=== PATIENT | male | born 1960 | race Caucasian/White ===

== ENCOUNTER 2016-07-05 11:15 | Emergency (ER) | payer OTHER ==
[~2016-07-05] VITALS: Ht 172.7 cm; Wt 108.5 kg
[~2016-07-05 11:15] MED LIST: ALPR-411 PO; ASPI-391 PO; ATOR-26 PO; BND25 PO; INSU1INJ15 SQ; INSUINJ14 SC; METO50TA16 PO; PANT40TA PO; SYN200 PO; TRAM-10 PO; ZOLP10TA PO
[2016-07-05 11:21] VITALS: TEMP 36.9; O2SAT 99; Ht 172.7 cm; Wt 108.5 kg
[2016-07-05] MEDS ORDERED: METHYLPREDNISOLONE 125 MG VIAL IV STA (11:31)
[2016-07-05] MEDS ORDERED: LEVALBUTEROL 1.25MG/0.5ML NEB INH STA (11:31)
[2016-07-05] MEDS ORDERED: DiphenhydrAMINE HCL 50 MG/ML VIAL IV STA (11:31)
[2016-07-05] MEDS ORDERED: IPRATROPIUM BROMIDE NEB SOLN 0.02% 2.5 ML VIAL INH STA (11:31)
[2016-07-05] MEDS ORDERED: PRLSR20 PO (11:44)
[2016-07-05] MEDS ORDERED: WARF4TAB8 PO (11:44)
[2016-07-05] MEDS ORDERED: LEVO100T7 PO (11:44)
[2016-07-05] MEDS ORDERED: METF-384 PO (11:44)
[2016-07-05] MEDS ORDERED: GLIP5TAB3 PO (11:44)
[2016-07-05] MEDS ORDERED: LIRA18IN SQ (11:44)
[2016-07-05] MEDS ORDERED: OPTIRAY 320 IV PRN (12:00)
[2016-07-05 12:13] LABS: BASO % 0.3 %; BASO ABS # 0.03 K/uL (0-0.2); EOS % 2.1 %; HEMATOCRIT 28.4 % (42-52); IG% 0.7 %; LYMPH % 22.6 %; LYMPH ABS # 2.52 K/uL (1.2-3.4); MEAN CELL VOLUME 66.5 fL (80-100); MEAN CORPUSCULAR HEMOGLOBIN 20.4 pg (25-34); MEAN CORPUSCULAR HGB CONC 30.6 g/dl (32-36); MEAN PLATELET VOLUME 9.6 fL (7.4-10.4); NEUT % 65.3 %; PLATELET COUNT 241 K/uL (130-400); RED BLOOD COUNT 4.27 M/uL (4.7-6.1); WHITE BLOOD COUNT 11.17 K/uL (4.8-10.8)
--- NOTE | 2016-07-05 12:30 | DIAGNOSTIC IMAGING REPORT ---
CHEST ONE VIEW PORTABLE CLINICAL HISTORY: EVALUATE RESPIRATORY DISTRESS. DYSPNEA COMPARISON STUDY: 12/04/2013 FINDINGS: Mild cardiomegaly. Interval median sternotomy. Diaphragms smooth. Lungs are clear. IMPRESSION: No acute process. Electronically signed by: Armando Huynh M.D. 07/05/2016 12:29 PM Dictated Date/Time: 07/05/2016 12:28 PM
[2016-07-05 12:35] LABS: ALT/SGPT 28 U/L (12-78); AST/SGOT 24 U/L (15-37); BLOOD UREA NITROGEN 10 mg/dl (7-18); BUN/CREATININE RATIO 6.7 (10-20); CALCIUM 8.2 mg/dl (8.5-10.1); CARBON DIOXIDE 25 mmol/L (21-32); CHLORIDE 108 mmol/L (98-107); GLUCOSE 201 mg/dl (70-99); POTASSIUM 4.4 mmol/L (3.5-5.1); SODIUM 141 mmol/L (136-145)
[2016-07-05 12:40] LABS: ALB/GLOB RATIO 0.9 (0.9-2); ALKALINE PHOSPHATASE 64 U/L (45-117)
[2016-07-05 12:57] LABS: COMPLETE YES; MICROCYTOSIS PRESENT; OVALOCYTES 1+
--- NOTE | 2016-07-05 13:36 | DIAGNOSTIC IMAGING REPORT ---
CHEST CTA for PULMONARY ARTERIES CT DOSE: 597.80 mGy.cm HISTORY: Chest pain dyspnea TECHNIQUE: Multiaxial CT images of the chest were performed following the intravenous administration of contrast to evaluate the pulmonary arteries. Maximal intensity projection images were also obtained. COMPARISON STUDY: None. FINDINGS: There is a normal caliber thoracic aorta with no evidence for dissection. There is no evidence for pulmonary embolus. No pleural effusions. No pneumothorax. The liver and spleen are unremarkable. No mediastinal or hilar lymphadenopathy. The central airways are patent. The lungs are clear. IMPRESSION: No evidence for pulmonary embolus. Electronically signed by: Armando Huynh M.D. 07/05/2016 1:35 PM Dictated Date/Time: 07/05/2016 1:27 PM
[2016-07-05 14:30] VITALS: BP 137/85; PULSE 94
[2016-07-05] MEDS ORDERED: DOXYCYCLINE HYCLATE 100 MG CAP PO ONE (14:30)
[2016-07-05] MEDS ORDERED: DOXY100C PO (14:30)
[2016-07-05] MEDS ORDERED: SODIUM CHLORIDE 0.9% 500ML 500 ML IV STA (14:33)
--- NOTE | 2016-07-05 16:23 | EMERGENCY ROOM VISIT NOTE ---
History Report prepared by Jorgito: Yuliana Benavides Under the Supervision of: Dr. Balbir Newman M.D. First contact with patient: 11:29 Chief Complaint: COUGH Stated Complaint: COUGHING History of Present Illness The patient is a 55 year old male who presents to the Emergency Room with complaints of a persistent cough for the last couple months. He initially attributed it to living in a dry and ashlyn basement, but decided to present to the ED after experiencing 2 "massive coughing fits" in the past 1.5 weeks. During the last couple of months, he also got sick with a chest cold, at which time his cough became slightly productive, but reports that it has been mostly dry since his cold resolved. Last week, he visited the doctor and received an antibiotic and prednisone. He stopped taking the prednisone after his blood sugar became too elevated. He finished the course of antibiotics, which helped his cough briefly, but his cough persists. He has tried many OTC medications including Robitussin, Mucinex, and Vicks for cough, but has not experienced any relief. He uses his inhaler 3 times every 4 hours, which relieves his cough briefly. He had a slight fever weeks ago, but not currently. He denies any shortness of breath. He denies any recent history of COPD, emphysema, or asthma. He has been using a humidifier at home. Source of History: patient Onset: couple month ago Position: other (global) Quality: other (cough) Timing: other (persistent) Modifying Factors (Relieving): other (inhaler (briefly), antibotics (briefly )) Associated Symptoms: No SOB, No fevers Note: Modifying factors: No significant relief with Robitussin, Mucinex, Vicks. Review of Systems See HPI for pertinent positives & negatives. A total of 10 systems reviewed and were otherwise negative. Past Medical & Surgical Medical Problems: (1) Allergic reaction (2) Anxiety (3) Anxiety (4) Coronary artery disease (5) DENTAL SURGERY (6) Depression (7) Diabetes (8) Heart disease (9) Hyperthyroidism (10) THYROID CA ABLATION (11) TOOTH ROOT REMOVAL (12) Wide-complex tachycardia Surgical Problems: (1) History of kidney surgery (2) S/P CABG x 4 Family History Diabetes mellitus Heart disease Social History Smoking Status: Never Smoker Alcohol Use: occasionally Drug Use: marijuana, other Marital Status: single Occupation Status: unemployed Current/Historical Medications Scheduled Aspirin (Aspirin Ec), 162 MG PO QAM Atorvastatin (Lipitor), 80 MG PO QAM Doxycycline Hyclate (Vibramycin), 100 MG PO BID Glipizide (Glucotrol), 5 MG PO DAILY Levothyroxine Sodium (Levothyroxine Sodium), 100 MCG PO DAILY Liraglutide (Victoza), 0.6 ML SQ DAILY Metformin Hcl (Glucophage), 1,000 MG PO BID Metoprolol Tartrate (Lopressor) (Lopressor), 25 MG PO BID Omeprazole (Prilosec), 20 MG PO DAILY Warfarin Sod (Jantoven), 8 MG PO DAILY Allergies Coded Allergies: Penicillins (Verified Allergy, Intermediate, RASH, 07/05/16) Clarithromycin (Unverified Allergy, Mild, ALLERGY, 07/05/16) Erythromycin (Unverified Allergy, Mild, ALLERGY, 07/05/16) Iodinated Diagnostic Agents (Verified Allergy, Unknown, HIVES, 07/05/16) Physical Exam Vital Signs Date Time Temp Pulse Resp B/P Pulse Ox O2 Delivery O2 Flow Rate FiO2 07/05/16 14:30 94 18 137/85 07/05/16 13:47 104 125/74 07/05/16 12:46 97 07/05/16 11:21 36.9 118 18 98/58 99 Room Air Physical Exam GENERAL: Patient is in no acute distress. HEENT: No acute trauma, normocephalic atraumatic, mucous membranes moist, no nasal congestion, no scleral icterus. NECK: No stridor, no adenopathy, no meningismus, trachea is midline. LUNGS: Breath sounds are full and equal bilaterally. Scattered wheezes are heard. No rhonchi. Dry cough noted. HEART: Tachycardic with a regular rhythm. No murmurs. ABDOMEN: Soft, nontender, bowel sounds positive, no hernias, no peritonitis. RECTAL: Stool is brown and heme negative. EXTREMITIES: No cyanosis or edema, full range of motion of all the joints without pain or difficulty, no signs for acute trauma. NEUROLOGIC: Oriented x 3, no acute motor or sensory deficits, no focal weakness. SKIN: No rash, no jaundice, no diaphoresis. Medical Decision & Procedures ER Provider Diagnostic Interpretation: X ray results and stated below per my interpretation and radiologist interpretation. Other radiology results and stated below per my review and radiologist interpretation: CHEST ONE VIEW PORTABLE CLINICAL HISTORY: EVALUATE RESPIRATORY DISTRESS. DYSPNEA COMPARISON STUDY: 12/04/2013 FINDINGS: Mild cardiomegaly. Interval median sternotomy. Diaphragms smooth. Lungs are clear. IMPRESSION: No acute process. Electronically signed by: Armando Huynh M.D. 07/05/2016 12:29 PM Dictated Date/Time: 07/05/2016 12:28 PM CHEST CTA for PULMONARY ARTERIES CT DOSE: 597.80 mGy.cm HISTORY: Chest pain dyspnea TECHNIQUE: Multiaxial CT images of the chest were performed following the intravenous administration of contrast to evaluate the pulmonary arteries. Maximal intensity projection images were also obtained. COMPARISON STUDY: None. FINDINGS: There is a normal caliber thoracic aorta with no evidence for dissection. There is no evidence for pulmonary embolus. No pleural effusions. No pneumothorax. The liver and spleen are unremarkable. No mediastinal or hilar lymphadenopathy. The central airways are patent. The lungs are clear. IMPRESSION: No evidence for pulmonary embolus. Electronically signed by: Armando Huynh M.D. 07/05/2016 1:35 PM Dictated Date/Time: 07/05/2016 1:27 PM Laboratory Results 07/05/16 11:55 Red Blood Count 4.27, Mean Corpuscular Volume 66.5, Mean Corpuscular Hemoglobin 20.4, Mean Corpuscular Hemoglobin Concent 30.6, Mean Platelet Volume 9.6, Neutrophils (%) (Auto) 65.3, Lymphocytes (%) (Auto) 22.6, Monocytes (%) (Auto) 9.0, Eosinophils (%) (Auto) 2.1, Basophils (%) (Auto) 0.3, Neutrophils # (Auto) 7.30, Lymphocytes # (Auto) 2.52, Monocytes # (Auto) 1.00, Eosinophils # (Auto) 0.24, Basophils # (Auto) 0.03 07/05/16 11:55 Test 07/05/16 11:55 White Blood Count 11.17 K/uL (4.8-10.8) Red Blood Count 4.27 M/uL (4.7-6.1) Hemoglobin 8.7 g/dL (14.0-18.0) Hematocrit 28.4 % (42-52) Mean Corpuscular Volume 66.5 fL (80-100) Mean Corpuscular Hemoglobin 20.4 pg (25-34) Mean Corpuscular Hemoglobin Concent 30.6 g/dl (32-36) Platelet Count 241 K/uL (130-400) Mean Platelet Volume 9.6 fL (7.4-10.4) Neutrophils (%) (Auto) 65.3 % Lymphocytes (%) (Auto) 22.6 % Monocytes (%) (Auto) 9.0 % Eosinophils (%) (Auto) 2.1 % Basophils (%) (Auto) 0.3 % Neutrophils # (Auto) 7.30 K/uL (1.4-6.5) Lymphocytes # (Auto) 2.52 K/uL (1.2-3.4) Monocytes # (Auto) 1.00 K/uL (0.11-0.59) Eosinophils # (Auto) 0.24 K/uL (0-0.5) Basophils # (Auto) 0.03 K/uL (0-0.2) RDW Standard Deviation 46.1 fL (36.4-46.3) RDW Coefficient of Variation 19.4 % (11.5-14.5) Immature Granulocyte % (Auto) 0.7 % Immature Granulocyte # (Auto) 0.08 K/uL (0.00-0.02) Microcytosis PRESENT Ovalocytes 1+ Anion Gap 8.0 mmol/L (3-11) Est Creatinine Clear Calc Drug Dose 65.7 ml/min Estimated GFR () 59.5 Estimated GFR (Non- 51.3 BUN/Creatinine Ratio 6.7 (10-20) Calcium Level 8.2 mg/dl (8.5-10.1) Total Bilirubin 0.4 mg/dl (0.2-1) Aspartate Amino Transf (AST/SGOT) 24 U/L (15-37) Alanine Aminotransferase (ALT/SGPT) 28 U/L (12-78) Alkaline Phosphatase 64 U/L (45-117) Troponin I < 0.015 ng/ml (0-0.045) Total Protein 7.0 gm/dl (6.4-8.2) Albumin 3.4 gm/dl (3.4-5.0) Globulin 3.6 gm/dl (2.5-4.0) Albumin/Globulin Ratio 0.9 (0.9-2) Laboratory results reviewed by me. Medications Administered Medications (Trade) Dose Ordered Sig/Shari Route Start Time Stop Time Status Last Admin Dose Admin Methylprednisolone Sodium Succinate (Solu-Medrol IV) 80 mg NOW STAT IV 07/05/16 11:31 07/05/16 11:39 DC 07/05/16 12:03 80 MG Diphenhydramine HCl (Benadryl Inj) 50 mg NOW STAT IV 07/05/16 11:31 07/05/16 11:39 DC 07/05/16 12:02 50 MG Levalbuterol (Xopenex 1.25MG/ 0.5ML Neb) 1.25 mg NOW STAT INH 07/05/16 11:31 07/05/16 11:39 DC 07/05/16 12:03 1.25 MG Ipratropium Durant (Atrovent 0.02% 0.5MG/2.5ML Neb) 0.5 mg NOW STAT INH 07/05/16 11:31 07/05/16 11:39 DC 07/05/16 12:24 0.5 MG Doxycycline Hyclate (Vibramycin Cap) 100 mg ONE ONCE PO 07/05/16 14:30 07/05/16 14:31 DC 07/05/16 14:37 100 MG ECG Indication: other (cough) Rate (beats per minute): 105 Rhythm: sinus tachycardia Findings: T-wave inversion (Lateral), no ectopy Comparison ECG Date: 02 Apr 2014 Change: no significant change ED Course 1130: The patient was evaluated in room C9. A complete history and physical exam was performed. 1131: Ipratropium Durant 0.5 mg INH, Levalbuterol 1.25 mg INH, Diphenhydramine HCl 50 mg IV, Solu-Medrol IV 80 mg IV. 1416: I reevaluated the patient. He is resting comfortably. I updated the patient on the results and treatment plan. He expressed understanding and agreement. He will be discharged home. 1430: Doxycycline Hyclate 100 mg PO. Medical Decision Differential diagnoses: bronchitis, pneumonia, CHF, PE, cardiac ischemia, electrolyte imbalance. There is a mild leukocytosis, this could be consistent with infection or just the stress of the situation. The patient was anemic with a hemoglobin of 8.7. He tells me he has a history of anemia but does not know his typical hemoglobin value. I did perform a rectal exam, the stool was heme negative. There is no significant electrolyte abnormality or kidney failure. EKG shows a sinus tachycardia, no acute ischemia. Cardiac enzyme testing times one is not consistent with acute cardiac injury. Chest x-ray does not show pneumonia, pneumothorax or CHF. Chest CT shows no PE, no pneumonia. Blood cultures are pending. The patient presents with a persistent cough for months. He was given a Xopenex Atrovent neb, he received IV Benadryl and IV Solu-Medrol in preparation for the CT scan-he did not have any type of reaction from the CT dye. The patient was given a dose of oral doxycycline. The patient is stable for discharge. Since he has had symptoms for as long as a few months, I am going to place him on doxycycline. He will continue his albuterol. No further steroids to be prescribed. I did suggest he follow with his doctors office and stay very well-hydrated. He can return here for worsening symptoms or lack of improvement. For now, he is being treated for an acute bronchitis. Impression Primary Impression: Acute bronchitis Additional Impressions: Cough Anemia Scribe Attestation The scribe's documentation has been prepared under my direction and personally reviewed by me in its entirety. I confirm that the note above accurately reflects all work, treatment, procedures, and medical decision making performed by me. Departure Information Dispostion Home / Self-Care Prescriptions Doxycycline Hyclate (VIBRAMYCIN) 100 Mg Cap 100 MG PO BID for 10 Days, #20 CAP Prov: Balbir Newman M.D. 07/05/16 Referrals [place] D.O. (PCP) Forms HOME CARE DOCUMENTATION FORM, IMPORTANT VISIT INFORMATION Patient Instructions [facility] Additional Instructions doxycycline 2x per day for 10 days continue the inhaler rest stay well hydrated see miya keller this week for a recheck return if worsening keep a watch on your coumadin level on the antibiotics we noted you were anemic today, no pneumonia seen on CT scan Problem Qualifiers
[2016-07-07] MEDS ORDERED: ASPI81TA28 PO (01:21)
[2016-10-18] MEDS ORDERED: FRRS300 PO (16:37)
[2016-10-18] MEDS ORDERED: LSN25 PO (16:37)
[2016-10-18] MEDS ORDERED: PANT1TAB48 PO (16:37)
== END 2016-07-05 14:52 | disposition home or self-care (01) ==
LOC: C.EDB 11:16 → C.EDC 14:52
DX: J20.9 Acute bronchitis, unspecified (principal); R05 Cough; D64.9 Anemia, unspecified; F41.9 Anxiety disorder, unspecified; I25.10 Atherosclerotic heart disease of native coronary artery without angina pectoris; F32.9 Major depressive disorder, single episode, unspecified; E11.9 Type 2 diabetes mellitus without complications; E05.90 Thyrotoxicosis, unspecified without thyrotoxic crisis or storm; Z85.850 Personal history of malignant neoplasm of thyroid; Z95.1 Presence of aortocoronary bypass graft; Z83.3 Family history of diabetes mellitus; Z82.49 Family history of ischemic heart disease and other diseases of the circulatory system; Z79.82 Long term (current) use of aspirin; Z79.01 Long term (current) use of anticoagulants; Z79.899 Other long term (current) drug therapy

== ENCOUNTER 2016-07-07 19:01 | Emergency (ER) | payer OTHER ==
[~2016-07-07] VITALS: Ht 172.7 cm; Wt 107.9 kg
[~2016-07-07 19:01] MED LIST changes: -ALPR-411 PO; -ASPI-391 PO; +ASPI81TA28 PO; -BND25 PO; +DOXY100C PO; +GLIP5TAB3 PO; -INSU1INJ15 SQ; -INSUINJ14 SC; +LEVO100T7 PO; +LIRA18IN SQ; +METF-384 PO; -PANT40TA PO; +PRLSR20 PO; -SYN200 PO; -TRAM-10 PO; +WARF4TAB8 PO; -ZOLP10TA PO
[2016-07-07 19:09] VITALS: TEMP 36.8; Ht 172.7 cm; Wt 107.9 kg
[2016-07-07 20:07] VITALS: O2SAT 95
[2016-07-07] MEDS ORDERED: SODIUM CHLORIDE 0.9% 1000ML 1,000 ML IV STA (20:22)
--- NOTE | 2016-07-07 20:44 | DIAGNOSTIC IMAGING REPORT ---
CHEST ONE VIEW PORTABLE HISTORY: Lightheadedness COMPARISON: Chest 07/05/2016. FINDINGS: The heart remains mildly enlarged. There are poststernotomy changes. No pleural effusions. No pneumothorax. The lungs are clear. No evidence for pulmonary edema. Stable mediastinal prominence is likely due to the mediastinal fat. IMPRESSION: No significant change compared to the prior study. No acute process. Electronically signed by: Segun Vincent M.D. 07/07/2016 8:43 PM Dictated Date/Time: 07/07/2016 8:41 PM
[2016-07-07 21:07] LABS: BASO % 0.1 %; BASO ABS # 0.01 K/uL (0-0.2); EOS % 2.1 %; IG% 0.5 %; LYMPH ABS # 2.31 K/uL (1.2-3.4); MEAN CELL VOLUME 68.2 fL (80-100); MEAN CORPUSCULAR HEMOGLOBIN 20.5 pg (25-34); MEAN PLATELET VOLUME 9.5 fL (7.4-10.4); MONO % 6.9 %; NEUT % 63.4 %; PLATELET COUNT 244 K/uL (130-400); WHITE BLOOD COUNT 8.55 K/uL (4.8-10.8)
[2016-07-07 21:24] LABS: POINT OF CARE TROPONIN I 0.01 ng/ml (0-0.045)
[2016-07-07 21:26] LABS: CREATININE 1.2 mg/dl (0.60-1.40)
[2016-07-07 21:27] LABS: CALCIUM 8.5 mg/dl (8.5-10.1); MAGNESIUM 1.6 mg/dl (1.8-2.4)
[2016-07-07 21:30] LABS: ALB/GLOB RATIO 0.9 (0.9-2)
[2016-07-07 21:31] LABS: COMPLETE YES; HYPOCHROMIA PRESENT; MICROCYTOSIS PRESENT; OVALOCYTES 1+
[2016-07-07 22:05] LABS: URINE APPEARANCE CLEAR (CLEAR); URINE BILIRUBIN NEG (NEG); URINE COLOR YELLOW; URINE NITRITE NEG (NEG); URINE SPECIFIC GRAVITY 1.021 (1.000-1.030); UROBILINOGEN NEG (NEG); ZZUR CULT IF INDIC CLEAN CATCH NO
[2016-07-07 22:09] LABS: MANUAL MICROSCOPIC REQUIRED? NO; REVIEW REQ? NO
--- NOTE | 2016-07-07 22:47 | EMERGENCY ROOM VISIT NOTE ---
History First contact with patient: 20:02 Chief Complaint: IRREGULAR HEARTBEAT Stated Complaint: LIGHT HEADED, HEARTBEART IS UNUSUAL NAUSEA Nursing Triage Summary: Pt reports approx 1.5 hours ago he "had a feeling of impending doom, I was short of breath, I just didn't feel well." Now presents to ER. Pt report shortness of breath with exertion, productive cough. History of Present Illness The patient is a 55 year old male who presents to the Emergency Room via private vehicle coming by parents with complaints of "lightheaded, heartbeat is unusual, nausea". The patient states that he was here a few days ago and was treated for acute bronchitis. He was given doxycycline. He states that he has been taking the doxycycline however he has been taking a few extra tablets. He notes that he is taking about 1 extra tablet per day. He also states that he may have taken the largest dose of victoza yesterday. He states this was prescribed to him by the dietitian, and he was never given instructions upon dosage. He states that he is here today because 1.5 hours prior to arrival he began feeling lightheaded, nauseous and a "feeling of impending doom". He states that he slept 90% of the day. He has been coughing, feeling sick and his body hurts. He notes that he has been coughing up dark sputum, sometimes clear and brown in nature. He denies any hematemesis. He states that he does have shortness of breath with exertion. He states that yesterday he felt like his blood sugar was low. He notes that he has not eaten anything today since 4 AM. He also states that he has not taken the metformin for the past few days, and did take just before coming here to the emergency department. He denies any speech troubles, weakness in the arms or legs, urinary symptoms, troubles with bowel movements, chest pain, abdominal pain. He states that he has felt like this before, and believes that it was secondary to panicking. Review of Systems A complete 10-point Review of Systems was discussed with the patient, with pertinent positives and negatives listed in the History of Present Illness. All remaining Review of Systems questions can be considered negative unless otherwise specified. Past Medical/Surgical History Medical Problems: (1) Allergic reaction (2) Anxiety (3) Anxiety (4) Coronary artery disease (5) DENTAL SURGERY (6) Depression (7) Diabetes (8) Heart disease (9) Hyperthyroidism (10) THYROID CA ABLATION (11) TOOTH ROOT REMOVAL (12) Wide-complex tachycardia Surgical Problems: (1) History of kidney surgery (2) S/P CABG x 4 Family History Diabetes mellitus Heart disease Social History Smoking Status: Former Smoker Alcohol Use: occasionally Drug Use: marijuana, other Marital Status: single Occupation Status: unemployed Current/Historical Medications Scheduled Aspirin (Aspirin Ec), 81 MG PO QAM Atorvastatin (Lipitor), 80 MG PO QAM Doxycycline Hyclate (Vibramycin), 100 MG PO BID Glipizide (Glucotrol), 5 MG PO DAILY Levothyroxine Sodium (Levothyroxine Sodium), 100 MCG PO DAILY Liraglutide (Victoza), 0.6 ML SQ DAILY Metformin Hcl (Glucophage), 1,000 MG PO BID Metoprolol Tartrate (Lopressor) (Lopressor), 25 MG PO BID Omeprazole (Prilosec), 20 MG PO DAILY Warfarin Sod (Jantoven), 8 MG PO DAILY Allergies Coded Allergies: Penicillins (Verified Allergy, Intermediate, RASH, 07/05/16) Clarithromycin (Unverified Allergy, Mild, ALLERGY, 07/05/16) Erythromycin (Unverified Allergy, Mild, ALLERGY, 07/05/16) Iodinated Diagnostic Agents (Verified Allergy, Unknown, HIVES, 07/05/16) Physical Exam Vital Signs Date Time Temp Pulse Resp B/P Pulse Ox O2 Delivery O2 Flow Rate FiO2 07/07/16 22:54 78 16 141/92 98 Room Air 07/07/16 22:00 82 16 140/91 97 Room Air 07/07/16 21:12 73 07/07/16 21:04 138/80 126/86 129/86 07/07/16 21:00 80 16 130/89 98 Room Air 07/07/16 20:27 87 07/07/16 20:07 95 Room Air 07/07/16 20:07 95 Room Air 07/07/16 20:05 87 18 160/97 96 Room Air 07/07/16 19:09 36.8 89 18 136/67 94 Room Air Physical Exam VITAL SIGNS - Vital signs and nursing notes were reviewed. Patient is afebrile , normotensive, non-tachycardic and is saturating well on room air 94%. GENERAL 55-year-old male appearing his stated age who is in no acute distress. Communicates well with provider and answers questions appropriately. SKIN - Without rashes. No petechial rashes. HEAD - NC/AT. EYES - Sclera anicteric. Palpebral conjunctiva pink and moist with no injection noted. EARS - No deformities of external structures noted on gross examination bilaterally. NOSE - Midline and without cyanosis. No epistaxis or purulent drainage noted. MOUTH/OROPHARYNX - Without perioral cyanosis. LUNGS - Chest wall symmetric without accessory muscle use, intercostals retractions, or central cyanosis. Normal vesicular breath sounds CTA B/L. No wheezes, rales, or rhonchi appreciated. CARDIAC - RRR with S1/S2. No murmur, rubs, or gallops appreciated. ABDOMEN - Abdominal contour without pulsations or visible masses. BS normoactive all four quadrants. No tenderness, palpable masses, hepatosplenomegaly, or ascites noted. EXTREMITIES - No clubbing or peripheral cyanosis. No pretibial edema present. + 5/5 strength noted in UE/LE bilaterally. NEUROLOGIC - Cranial nerves II through XII grossly intact. Sensory intact to light touch throughout. PSYCH - A&Ox3 and cooperates fully with examiner. Pt is very pleasant and interacts well with examiner. Medical Decision & Procedures ER Provider Diagnostic Interpretation: CHEST ONE VIEW PORTABLE HISTORY: Lightheadedness COMPARISON: Chest 07/05/2016. FINDINGS: The heart remains mildly enlarged. There are poststernotomy changes. No pleural effusions. No pneumothorax. The lungs are clear. No evidence for pulmonary edema. Stable mediastinal prominence is likely due to the mediastinal fat. IMPRESSION: No significant change compared to the prior study. No acute process. Electronically signed by: Segun Vincent M.D. 07/07/2016 8:43 PM Dictated Date/Time: 07/07/2016 8:41 PM Laboratory Results 07/07/16 20:55 Red Blood Count 4.40, Mean Corpuscular Volume 68.2, Mean Corpuscular Hemoglobin 20.5, Mean Corpuscular Hemoglobin Concent 30.0, Mean Platelet Volume 9.5, Neutrophils (%) (Auto) 63.4, Lymphocytes (%) (Auto) 27.0, Monocytes (%) (Auto) 6.9, Eosinophils (%) (Auto) 2.1, Basophils (%) (Auto) 0.1, Neutrophils # (Auto) 5.42, Lymphocytes # (Auto) 2.31, Monocytes # (Auto) 0.59, Eosinophils # (Auto) 0.18, Basophils # (Auto) 0.01 07/07/16 20:55 Test 07/07/16 20:38 07/07/16 20:55 07/07/16 21:03 07/07/16 22:13 Bedside Glucose 171 mg/dl (70-99) White Blood Count 8.55 K/uL (4.8-10.8) Red Blood Count 4.40 M/uL (4.7-6.1) Hemoglobin 9.0 g/dL (14.0-18.0) Hematocrit 30.0 % (42-52) Mean Corpuscular Volume 68.2 fL (80-100) Mean Corpuscular Hemoglobin 20.5 pg (25-34) Mean Corpuscular Hemoglobin Concent 30.0 g/dl (32-36) Platelet Count 244 K/uL (130-400) Mean Platelet Volume 9.5 fL (7.4-10.4) Neutrophils (%) (Auto) 63.4 % Lymphocytes (%) (Auto) 27.0 % Monocytes (%) (Auto) 6.9 % Eosinophils (%) (Auto) 2.1 % Basophils (%) (Auto) 0.1 % Neutrophils # (Auto) 5.42 K/uL (1.4-6.5) Lymphocytes # (Auto) 2.31 K/uL (1.2-3.4) Monocytes # (Auto) 0.59 K/uL (0.11-0.59) Eosinophils # (Auto) 0.18 K/uL (0-0.5) Basophils # (Auto) 0.01 K/uL (0-0.2) RDW Standard Deviation 48.8 fL (36.4-46.3) RDW Coefficient of Variation 19.8 % (11.5-14.5) Immature Granulocyte % (Auto) 0.5 % Immature Granulocyte # (Auto) 0.04 K/uL (0.00-0.02) Hypochromasia PRESENT Microcytosis PRESENT Ovalocytes 1+ Urine Color YELLOW Urine Appearance CLEAR (CLEAR) Urine pH 5.0 (4.5-7.5) Urine Specific [place] 1.021 (1.000-1.030) Urine Protein NEG (NEG) Urine Glucose (UA) 3+ (NEG) Urine Ketones NEG (NEG) Urine Occult Blood NEG (NEG) Urine Nitrite NEG (NEG) Urine Bilirubin NEG (NEG) Urine Urobilinogen NEG (NEG) Urine Leukocyte Esterase NEG (NEG) Anion Gap 8.0 mmol/L (3-11) Est Creatinine Clear Calc Drug Dose 81.9 ml/min Estimated GFR () 77.9 Estimated GFR (Non- 67.2 BUN/Creatinine Ratio 10.0 (10-20) Calcium Level 8.5 mg/dl (8.5-10.1) Magnesium Level 1.6 mg/dl (1.8-2.4) Total Bilirubin 0.4 mg/dl (0.2-1) Aspartate Amino Transf (AST/SGOT) 43 U/L (15-37) Alanine Aminotransferase (ALT/SGPT) 36 U/L (12-78) Alkaline Phosphatase 65 U/L (45-117) Total Protein 7.3 gm/dl (6.4-8.2) Albumin 3.4 gm/dl (3.4-5.0) Globulin 3.9 gm/dl (2.5-4.0) Albumin/Globulin Ratio 0.9 (0.9-2) AE-Nvo-K-Type Natriuretic Peptide 447 pg/ml (0-900) Bedside Troponin I 0.000 ng/ml (0-0.045) Medications Administered Medications (Trade) Dose Ordered Sig/Shari Route Start Time Stop Time Status Last Admin Dose Admin Sodium Chloride (Nss 1000ml) 1,000 ml @ 999 mls/hr Q1H1M STAT IV 07/07/16 20:22 07/07/16 21:22 DC 07/07/16 20:52 999 MLS/HR Medical Decision Patient was seen and evaluated as above. Past visits were reviewed. He was noted to be here 2 days ago. An extensive workup was performed at that time. He has been taking doxycycline. Due to his presentation, IV access was obtained and the above workup was initiated. There was no leukocytosis, slight anemia was noted but improved from previous. Electrolytes within normal limits. Kidney function was within normal limits. Point care glucose and random glucose was elevated at 171, and 169 respectively. Magnesium low 1.6. AST elevated at 43, which is an interval change. The point care troponin was negative 2. BNP was 447. Urine revealed 3+ glucose, otherwise unremarkable. Chest x-ray was stable. The patient was hydrated with 1 L of normal saline, and noted to be feeling much better. He states that his nausea and lightheadedness subsided and she would like to go home and eat. His orthostatic vital signs were negative. The patient made experienced a brief episode of hypoglycemia, or perhaps anxiety. I do not suspect that he has any underlying cardiac cause to today's visit. He had a CT scan of the chest performed 2 days prior. I do not feel that repeating this would be beneficial at this time. He was instructed to continue his medications, and he notes that he does have at home supplements for magnesium. He was educated to follow up with his family doctor regarding today's visit, and was given a synopsis of labs in which to discuss. He was educated upon management today's findings, had questions answered prior to discharge, was educated upon worrisome symptoms which to return, and was discharged home in good condition. I suspect the patient was experiencing an episode of anxiety, dehydration, or brief hypoglycemia. I do not suspect any emergent etiology. His EKG reveals normal sinus rhythm, rate of 87 these per minute, with a nonspecific T-wave abnormality which when compared with EKG 2 days ago it appears that this has replaced the inverted T waves in the lateral leads. I do suspect this is a better finding. The case was discussed with my attending. In the evaluation and treatment of this patient the following differential diagnoses were entertained: [place], PE, acute bronchitis, anxiety, hypoglycemia, dehydration, among others. Impression Primary Impression: Lightheadedness Additional Impressions: Acute bronchitis Cough Anemia Hypomagnesemia LFT elevation Departure Information Dispostion Home / Self-Care Condition GOOD Referrals [place] [facility] (PCP) Patient Instructions My [facility] Additional Instructions You were seen in the emergency department for lightheadedness, unusual heartbeat , nausea. Here is a a synopsis of your labs as we discussed. Your hemoglobin today was 9. There was hypochromic nausea, microcytosis, and ovalocytes in your blood. No white blood cell count elevation. Your electrolytes were within normal limits. Your BUN was 12, creatinine was 1.2. Point of care glucose 177. Random glucose 169. Magnesium low at 1.6. AST elevated at 43. Point care troponin negative 2. BNP within normal limits. Urine revealed 3+ glucose, otherwise negative. Chest x-ray no significant compared to previous. EKG no significant change compared to previous. Please follow up with your family doctor regarding today's visit. Please eat a healthy and well balanced diet. You have been prescribed Doxycycline to be taken as prescribed (THIS WAS PRESCRIBED EARLIER IN THE WEEK) Please only take this as prescribed. This is an antibiotic. All antibiotics have the potential to cause diarrhea. Stop this medication and contact a medical provider if you were to develop any significant adverse side effects including: wheezing, shortness of breath, passing out, vomiting, or a diffuse rash. Always take antibiotics as directed and COMPLETE the ENTIRE course regardless of the improvement of your symptoms. Protect yourself with sunscreen while on this antibiotic as it increases your skin's sensitivity to the light and cause bad sunburns. In addition, you should be sure to take this pill after eating. Make sure the pill is completely swallowed as this medication can cause irritation to the lining of the esophagus. Do NOT drink milk or eat anything with large amounts of Calcium in them 1 hour prior to taking this medication as this will decrease the effectiveness of the medication. Please be sure to drink plenty of fluids. Please call your family doctor to follow up regarding today's visit. Please call them as soon as possible to schedule an appointment. Please take your medications as prescribed. You may take the magnesium supplements as directed on the bottle. Please return to the emergency department with any new/concerning symptoms. Problem Qualifiers
[2016-07-07 22:54] VITALS: BP 141/92; PULSE 78; O2SAT 98
[2016-10-18] MEDS ORDERED: FRRS300 PO (16:37)
[2016-10-18] MEDS ORDERED: LSN25 PO (16:37)
[2016-10-18] MEDS ORDERED: PANT1TAB48 PO (16:37)
== END 2016-07-07 23:00 | disposition home or self-care (01) ==
LOC: C.EDB 19:04 → C.EDA 23:00
DX: R42 Dizziness and giddiness (principal); J20.9 Acute bronchitis, unspecified; R05 Cough; D64.9 Anemia, unspecified; E83.42 Hypomagnesemia; R79.89 Other specified abnormal findings of blood chemistry; F41.9 Anxiety disorder, unspecified; I25.10 Atherosclerotic heart disease of native coronary artery without angina pectoris; F32.9 Major depressive disorder, single episode, unspecified; E11.9 Type 2 diabetes mellitus without complications; Z85.850 Personal history of malignant neoplasm of thyroid; Z95.1 Presence of aortocoronary bypass graft; Z83.3 Family history of diabetes mellitus; Z82.49 Family history of ischemic heart disease and other diseases of the circulatory system; Z87.891 Personal history of nicotine dependence; Z79.82 Long term (current) use of aspirin; Z79.01 Long term (current) use of anticoagulants; Z79.899 Other long term (current) drug therapy

== ENCOUNTER → 2016-09-09 | Outpatient (CLI) | payer OTHER ==
[~2016-09-09] MED LIST changes: -DOXY100C PO; +FRRS300 PO; +LSN25 PO; +PANT1TAB48 PO
--- NOTE | 2016-09-09 16:20 | SPLIT NIGHT TECHNICIAN REPORT ---
[facility] Split Night Polysomnogram - Iron Installer Report Study date: 09/09/2016 Referring Physician: Deedee Alvarado M.D. Name: BALBINA CALDERON Leia Iron Installer: Jan[facility]iel [facility] Date of : 1960 Height: 55 years, Height 5' 8" Sex: Male Weight: 237 lbs Age: 55 Neck Circum: 18.75 in BMI: Medications: 36.03 Albuterol, ASA 81mg, Nitrolycerin 0.4mg, Levothyroxine 100mcg, Metformin 1000mg, Metoprolol 25mg, Atorvastatin 80mg, Omeprazole 20mg, Glipizide 5mg Patient History Patient has a history of being tired often throughout the day. He recently had an ECHO done and it showed right ventricular systolic dysfunction. He has been told he snores loudly, mainly while on his back. He has not been told he stops breathing. He stated that he usually sleeps on his sides or stomach. He is sleeping with 3 pillows and HOB slightly raised. ESS=6/24. Neck circumference is 18.75in. ETCO2 monitoring during baseline portion of test. Parameters Monitored NPSG: E1-M2, E2-M1, Fp1-M2, Fp2-M1, F3-M2, F4-M2, F4-M1, C3-M2, C4-M2, C4-M1, O1-M2, O2-M2, O2-M1, T3-M2, T4-M1, P3-M2, P4-M1, CHIN1, CHIN2, HR, EKG, Legs, PFLOW, SNOR, FLOW, CFLOW, Tidal Volume, THOR, ABDO, SpO2, PLTH, CPRESS, ETCO2 Wave, ETCO2, pH SLEEP SUMMARY DATA DIAGNOSTIC TREATMENT Lights Out: 8:09:16 AM 10:45:16 AM Lights On: 10:32:16 AM 3:44:46 PM Total Recording Time (TRT): 143.5 min. 300.0 min. Total Sleep Time (TST): 126.0 min. 207.5 min. NREM Time: 113.5 min. 157.0 min. REM Time: 12.5 min. 50.5 min. Sleep Period Time (SPT): 133.0 min. 279.0 min. Sleep Efficiency (SE): 88 % 69 % Sleep Latency: 10.0 min. 20.5 min. Arousal Index: 3.3 7.5 PAP Treatment Levels: 4, 5, 7, 8, 9, 10 * Optimal Pressure(s) SLEEP STAGING DATA DIAGNOSTIC TREATMENT Duration (min) TST % Duration (min) TST % Stage Wake: 17.0 min. -- 92.0 min. -- WASO: 7.0 min. -- 71.5 min. -- NREM: 113.5 min. 90 % 157.0 min. 76 % Stage N1: 8.5 min. 7 % 27.0 min. 13 % Stage N2: 105.0 min. 83 % 114.5 min. 55 % Stage N3: 0.0 min. 0 % 15.5 min. 7 % REM: 12.5 min. 10 % 50.5 min. 24 % POSITIONAL DATA Event Count Index Event Count Index Supine: 2 29.0 12 5.0 Supine NREM: 2 29.0 11 5.6 Supine REM: N/A N/A 1 2 Non-Supine: 106 52.2 4 3.7 Non-Supine NREM: 93 51.0 4 6.3 Non-Supine REM: 13 62.4 0 0.0 AROUSAL SUMMARY DATA: Event Count Index Event Count Index Apnea Arousals: 0 0.5 0 0.3 Hypopnea Arousals: 3 1.4 1 0.3 Snore Arousals: 0 0.0 3 0.9 PLM Arousals: 1 0.5 14 4.0 Non-Specific Arousals: 2 1.0 7 2.0 Total Arousals: 7 3.3 26 7.5 MYOCLONUS (PLM) Event Count Index Event Count Index PLM: 262 124.8 326 94.3 PLM AROUSAL: 1 0.5 14 4.0 PLM W/O AROUSAL 262 124.8 312 90.2 PLM W/RESP EVENT 41 0.0 1 0.0 MYOCLONUS (PLM) Event Count Index Event Count Index LM: 1 19.5 36 10.4 LM AROUSAL: 1 0.5 1 0.3 LM W/O AROUSAL LM W/RESP EVENT LM NON SPECIFIC 248 118.1 344 99.5 HEART RATE DATA DIAGNOSTIC TREATMENT Sleep (bpm): 78 76 REM (bpm): 87 95 NREM (bpm): 93 94 Tachycardia Count: 0 0 Tachycardia Duration: 0.00 0 Bradycardia Count: 0 0 Bradycardia Duration: 0.00 0 DIAGNOSTIC PORTION TREATMENT PORTION RESPIRATORY DATA Event Count Index Event Count Index AHI: -- 51.4 -- 4.6 RDI: -- 51.4 -- 5 Obstructive Apnea: 1 0.5 0 0.0 Central Apnea: 0 0.0 1 0.3 Mixed Apnea: 0 0.0 0 0.0 Hypopnea: 107 51.0 15 4.3 RERA: 0 0.0 0 0.0 Total Apneas: 1 0.5 1 0.3 RESPIRATORY DATA REM NREM SLEEP REM NREM SLEEP Supine Position: Obstructive Apneas: N/A 1 1 0 0 0 Central Apneas: N/A 0 0 0 1 1 Mixed Apneas: N/A 0 0 0 0 0 Hypopneas: N/A 1 1 1 10 11 RERA N/A 0 0 0 0 0 Total Supine Events: N/A 2 2 1 11 12 Supine AHI: N/A 29.0 29.0 2 5.6 5.0 Supine RDI: N/A 29.0 29.0 2.4 5.6 5.0 REM NREM SLEEP REM NREM SLEEP Non-Supine Position: Obstructive Apneas: 0 0 0 0 0 0 Central Apneas: 0 0 0 0 0 0 Mixed Apneas: 0 0 0 0 0 0 Hypopneas: 13 93 106 0 4 4 RERA 0 0 0 0 0 0 Total Supine Events: 13 93 106 0 4 4 Supine AHI: 62.4 51.0 52.2 0.0 6.3 3.7 Supine RDI: 62.4 51.0 52.2 0.0 6.3 3.7 OXYGEN DESTAURATION DATA: Event Count Index Event Count Index REM Desaturations: 16 76.8 7 8.3 NREM Desaturations: 100 52.9 48 18.3 SNORE DATA DIAGNOSTIC TREATMENT Snore Time: 8.3 11:05:46 AM Snore TST%: 4 1 Snore Arousal Count: 0 3 Snore Arousal Index: 0.0 0.9 Desaturation Event Summary: Minimum %SpO2 Event Count Mean/Min/Max Duration(sec.) Desaturation Index % Time In Bed > 90 164 23.5 / 6.5 / 60.0 23.9 93.4 86 - 90 11 18.7 / 9.0 / 32.3 32.6 4.6 81 - 85 3 18.2 / 9.3 / 25.5 33.2 1.2 76 - 80 1 9.3 / 9.3 / 9.3 20.3 0.7 71 - 75 0 N/A 0.0 0.2 66 - 70 0 N/A 0.0 0.0 61 - 65 0 N/A 0.0 0.0 56 - 60 0 N/A 0.0 0.0 51 - 55 0 N/A 0.0 0.0 < 50 0 N/A 0.0 0.0 OXYGEN SATURATION DATA DIAGNOSTIC TREATMENT SpO2 Mean Sleep: 92 % 94 % SpO2 Mean REM: 87 % 95 % SpO2 Mean NREM: 93 % 94 % SpO2 Minimum Sleep: 72 % 86 % SpO2 Minimum REM: 72 % 89 % SpO2 Minimum NREM: 76 % 86 % Time Below 90% (TST): 18.2 1.5 Time Below 88% (TST): 12.8 0.1 Total REM NREM Awake <50% 0.0 min. 0.0 min. 0.0 min. 0.0 min. 51 - 60% 0.0 min. 0.0 min. 0.0 min. 0.0 min. 61 - 70% 0.0 min. 0.0 min. 0.0 min. 0.0 min. 71 - 80% 3.6 min. 3.0 min. 0.7 min. 0.0 min. 81 - 90% 25.7 min. 5.4 min. 19.7 min. 0.6 min. 91 - 100% 411.3 min. 54.7 min. 249.9 min. 106.7 min. Average 94 93 94 95 Minimum SpO2 72 72 76 86 Desaturation Event Index 23.2 21.9 32.8 0.6 # Desat. Events below 89% 49 15 34 0 Time(%) with Saturation below 89% 3.6 1.5 2.0 0.1 Time(min.) with Saturation below 89% 15.8 6.6 8.9 0.4 Recording Iron Installer Comments: Mr. Calderon slept in the left, right, and supine positions with 3 pillows and HOB slightly raised. No bruxism or arrhythmias were noted. Leg movements were seen. Snoring was scored as a 2-3 (on a scale of 0-5, where 0=no snoring to 5=snoring loud enough to be heard through the door or down the pugh). Patient had hypopneas during test and during REM, he desaturated into the 70s. At 10:44am, Mr. Calderon met specific Split-Night criteria during the diagnostic portion of the study. C-pap was started at +4cmH2O and up-titrated to a pressure of +[id number] which nearly eliminated all respiratory events. Mr. Calderon did have some difficulty tolerating mask and pressure, but overall did very well, he may need alot of encouragement to be compliant. He has all ready asked what would happen to him if he did not wear c-pap. Mr. Calderon did say he slept fairly well, even with the mask. A A [place] mask Medium was used during titration. The final report will be interpreted and signed by a sleep physician. The completed report will then be placed in the patient medical record. Therapy Event: Therapy (cm H20) 0 4 5 7 8 9 10 Total Time at Pressure (min.) 143.0 15.2 23.3 55.9 10.2 48.2 146.7 TST at Pressure (min.) 126.0 0.0 8.0 38.4 10.2 45.2 105.7 # Periods 1 1 1 1 1 1 1 Sleep Onset (min.) 10.0 N/A 5.3 0.0 0.0 0.0 0.0 REM Onset (min.) 119.5 N/A N/A N/A 5.1 0.0 129.2 Sleep Efficiency % 88 0 34 68 100 93 72 Wakefulness (%) 11.9 100.0 65.7 31.3 0.0 6.2 27.9 Wakefulness (min.) 17.0 15.2 15.3 17.5 0.0 3.0 41.0 NREM 1 (%) 5.9 0.0 32.2 7.2 0.0 7.3 8.2 NREM 1 (min.) 8.5 0.0 7.5 4.0 0.0 3.5 12.0 NREM 2 (%) 73.4 0.0 2.1 54.5 9.8 28.6 46.8 NREM 2 (min.) 105.0 0.0 0.5 30.5 1.0 13.8 68.7 NREM 3 (%) 0.0 0.0 0.0 7.0 40.0 0.0 5.1 NREM 3 (min.) 0.0 0.0 0.0 3.9 4.1 0.0 7.5 REM (%) 8.7 0.0 0.0 0.0 50.2 57.9 11.9 REM (min.) 12.5 0.0 0.0 0.0 5.1 27.9 17.5 # Arousals 7 N/A 4 6 0 3 13 Arousal Index 3.3 N/A 30.0 9.4 0.0 4.0 7.4 # Snore 351 N/A 5 19 0 8 19 Snore Index 167.1 N/A 37.5 29.7 0.0 10.6 10.8 AHI 51.4 N/A 30.0 4.7 29.4 1.3 1.7 AHI Supine 29.0 N/A 20.0 4.8 29.4 0.0 2.0 AHI Non-Supine 52.2 N/A 36.0 0.0 N/A 1.4 0.0 NREM AHI 50.2 N/A 30.0 4.7 47.2 3.5 2.0 REM AHI 62.4 N/A N/A N/A 11.7 0.0 0.0 RDI 51.4 N/A 30.0 4.7 29.4 1.3 1.7 # Obstructive 1 N/A 0 0 0 0 0 # Central Ap 0 N/A 0 0 0 0 1 # Mixed 0 N/A 0 0 0 0 0 # Hypopneas 107 N/A 4 3 5 1 2 RERAS 0 N/A 0 0 0 0 0 Total Respiratory Events 108 N/A 4 3 5 1 3 Time Below SpO2 89.00% (min.) 15.4 0.0 0.0 0.0 0.1 0.0 0.0 Mean NREM SpO2 (%) 93 N/A 94 93 91 95 95 Mean REM SpO2 (%) 87 N/A N/A N/A 92 95 95 Mean Sleep SpO2 (%) 92 N/A 94 93 92 95 95 Min NREM SpO2 (%) 76 N/A 91 89 86 90 90 Min REM SpO2 (%) 72 N/A N/A N/A 89 91 92 Position Supine (min.) 4.1 0.0 3.0 37.4 10.2 1.9 90.7 Position Non-supine (min.) 121.9 0.0 5.0 1.0 0.0 43.3 15.0 LM Index Sleep 144.3 N/A 45.0 145.2 76.5 58.4 116.9 LM Index NREM 155.4 N/A 45.0 145.2 129.9 97.1 131.3 LM Index REM 43.2 N/A N/A N/A 23.5 34.4 44.6 Mean Heart Rate (bpm) 78 N/A 78 79 77 75 76 Min Heart Rate (bpm) 69 N/A 75 74 72 68 70
--- NOTE | 2016-09-27 08:16 | POLYSOMNOGRAPH REPORT ---
SPLIT NIGHT SLEEP STUDY REFERRING PERSON: Dr. Zuleyma Alvarado. FIRE PREVENTION CAPTAIN: Janine Maciel. 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 He has not been told that he stops breathing with sleep. He does sleep with 3 pillows and the head of his bed slightly raised. His [place] sleepiness scale score on the morning of this study is 6. BMI is 36.03. Mr. Calderon did qualify for a split night sleep study. He was observed for 126 minutes of sleep time. During that time, he had 7% N1 sleep, 83% N2 sleep and 10% REM sleep. There were 7 arousals from sleep. Three of these arousals were due to respiratory events, 1 due to periodic limb movement of sleep and 3 were nonspecific. There were 262 periodic limb movements of sleep noted during observation, 1 of which resulted in arousal. Mean saturation during observation was 92% with desaturations to 72%. Saturations were less than 90% for 18.2 minutes, during the diagnostic portion of this test. There was 1 obstructive, no central and no mixed apneas during the diagnostic test portion of this test. However, there were 107 hypopneas. Apnea-hypopnea index was 51.4. Therefore, at 10:45 a.m., this patient was started on CPAP therapy. He chose a [employer] Eson nasal mask in a medium size for his titration. Increasing pressures were needed to prevent apneas, hypopneas and arousals. He was observed on a pressure of 10 for 105.7 minutes of recorded time. 17.5 of those minutes were spent in supine REM sleep. AHI and RDI on this pressure were both 1.7. There were no desaturations less than 89%. IMPRESSION AND PLAN: Successful split night sleep study in this patient with severe obstructive sleep apnea. He appears to do well with a medium Eson nasal mask on a pressure of 10. A download should be reviewed from his machine in 1 month both to check compliance as well as apnea-hypopnea index.
== END | disposition home or self-care (01) ==
LOC: C.NEUR 07:30
PROVIDERS: ATTEND Family Medicine
DX: R06.83 Snoring (principal); I51.89 Other ill-defined heart diseases; E66.01 Morbid (severe) obesity due to excess calories

== ENCOUNTER 2016-10-17 15:53 | Observation (INO) | payer OTHER ==
[~2016-10-17] VITALS: Ht 172.7 cm; Wt 105.5 kg
[~2016-10-17 15:53] MED LIST changes: -FRRS300 PO; -LSN25 PO; -PANT1TAB48 PO
[2016-10-17 16:42] LABS: BASO % 0.1 %; BASO ABS # 0.01 K/uL (0-0.2); COMPLETE YES; EOS % 1.1 %; HEMATOCRIT 35.5 % (42-52); IG% 0.1 %; LYMPH % 23.9 %; LYMPH ABS # 1.73 K/uL (1.2-3.4); MEAN CELL VOLUME 75.1 fL (80-100); MEAN CORPUSCULAR HEMOGLOBIN 22.8 pg (25-34); MEAN CORPUSCULAR HGB CONC 30.4 g/dl (32-36); MEAN PLATELET VOLUME 10.7 fL (7.4-10.4); MONO % 7.2 %; NEUT % 67.6 %; PLATELET COUNT 300 K/uL (130-400); RED BLOOD COUNT 4.73 M/uL (4.7-6.1); WHITE BLOOD COUNT 7.23 K/uL (4.8-10.8)
[2016-10-17 16:48] LABS: ALT/SGPT 30 U/L (12-78); BLOOD UREA NITROGEN 14 mg/dl (7-18); BUN/CREATININE RATIO 10.4 (10-20); CALCIUM 8.9 mg/dl (8.5-10.1); CARBON DIOXIDE 27 mmol/L (21-32); CHLORIDE 101 mmol/L (98-107); GLUCOSE 260 mg/dl (70-99); POTASSIUM 4.5 mmol/L (3.5-5.1); SODIUM 136 mmol/L (136-145)
[2016-10-17 16:50] LABS: PROTHROMBIN TIME (PATIENT) 10.2 SECONDS (9.0-12.0)
--- NOTE | 2016-10-17 16:57 | DIAGNOSTIC IMAGING REPORT ---
CHEST ONE VIEW PORTABLE CLINICAL HISTORY: chest pain dyspnea COMPARISON STUDY: 07/07/2016 FINDINGS: Mild stable cardiomegaly. Prior median sternotomy. Lungs are clear. Diaphragms are smooth. IMPRESSION: Mild stable cardia megaly. Otherwise negative study Electronically signed by: Armando Huynh M.D. 10/17/2016 4:56 PM Dictated Date/Time: 10/17/2016 4:55 PM
[2016-10-17 16:59] LABS: ALB/GLOB RATIO 1.2 (0.9-2); ALKALINE PHOSPHATASE 78 U/L (45-117); AST/SGOT 22 U/L (15-37)
--- NOTE | 2016-10-17 18:05 | EMERGENCY ROOM VISIT NOTE ---
History Report prepared by Jorgito: Yuliana Benavides Under the Supervision of: Dr. Spring Watson D.O. First contact with patient: 16:07 Chief Complaint: CARDIAC ASSESSMENT Stated Complaint: INDIGESTION,LF ELBOW PAIN,NAUSEA,SWEATING Nursing Triage Summary: c/o nausea, indigestion, diaphoresis and L elbow pain since 4 am, pt states that this is the same pain he had when he had cabg x 4 in 2014 in [place], pt c/o funny feeling in his jaw History of Present Illness The patient is a 55 year old male who presents to the Emergency Room with complaints of worsening upper abdominal discomfort starting 4 days ago. He is usually able to resolve his symptoms with Pepto Bismol. He believed that it was indigestion. 12 hours ago, he woke up in the middle of the night with nausea, upper abdominal pain, and diaphoresis. He tried taking Pepto Bismol again, but it only relieved his symptoms for a short time. He also reports a sensation in his left elbow and in some areas of his jaw. He has some tingling in his left hand. He did dry heave. He denies any leg swelling, cough, cold symptoms, fever , chills, chest pain or vomiting. His right leg is often bigger than his left. He has a history of quadruple bypass 3 years ago and diabetes. He has nitro which he did not take because he did not believe his symptoms to be cardiac. 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 He is a former smoker. He stopped Coumadin a couple weeks ago. He was on Coumadin for occasional atrial fibrillation. He has not gone into atrial fibrillation after he was taken off of one of his other medications. Blood work recently found that he was anemic. He has a normal colonoscopy and endoscopy recently. He had an echo 1.5 months ago which found that his right ventricle was not functioning properly. He has sleep apnea. Source of History: patient Onset: 4 days ago Position: abdomen (upper) Quality: other (pain) Timing: worsening Associated Symptoms: + diaphoresis, + nausea, No fevers, No chills, No cough , No chest pain, No vomiting Note: Pt reports dry heaving, left elbow sensation, jaw sensation. Pt denies leg swelling, cold symptoms. Review of Systems See HPI for pertinent positives & negatives. A total of 10 systems reviewed and were otherwise negative. Past Medical & Surgical Medical Problems: (1) Allergic reaction (2) Anxiety (3) Anxiety (4) Coronary artery disease (5) DENTAL SURGERY (6) Depression (7) Diabetes (8) Heart disease (9) Hyperthyroidism (10) THYROID CA ABLATION (11) TOOTH ROOT REMOVAL (12) Wide-complex tachycardia Surgical Problems: (1) History of kidney surgery (2) S/P CABG x 4 Family History Diabetes mellitus Heart disease Social History Smoking Status: Former Smoker Alcohol Use: occasionally Drug Use: marijuana, other Marital Status: single Occupation Status: unemployed Current/Historical Medications Scheduled Aspirin (Aspirin Ec), 81 MG PO QAM Atorvastatin (Lipitor), 80 MG PO QAM Glipizide (Glucotrol), 5 MG PO DAILY Levothyroxine Sodium (Levothyroxine Sodium), 100 MCG PO DAILY Metformin Hcl (Glucophage), 1,000 MG PO BID Metoprolol Tartrate (Lopressor) (Lopressor), 25 MG PO BID Omeprazole (Prilosec), 20 MG PO DAILY Allergies Coded Allergies: Penicillins (Verified Allergy, Intermediate, RASH, 10/17/16) Clarithromycin (Verified Allergy, Mild, ALLERGY, 10/17/16) Erythromycin (Verified Allergy, Mild, ALLERGY, 10/17/16) Iodinated Diagnostic Agents (Verified Allergy, Unknown, HIVES, 10/17/16) Physical Exam Vital Signs Date Time Temp Pulse Resp B/P (MAP) Pulse Ox O2 Delivery O2 Flow Rate FiO2 10/17/16 17:37 78 20 147/83 97 Room Air 10/17/16 16:25 86 10/17/16 16:25 98 Room Air 10/17/16 16:23 97 Room Air 10/17/16 15:58 37.1 88 18 53/90 97 Room Air Physical Exam GENERAL: alert, well appearing, well nourished, no distress, non-toxic EYE EXAM: normal conjunctiva, PERRL and EOM's grossly intact OROPHARYNX: no exudate, no erythema, lips, buccal mucosa, and tongue normal and mucous membranes are moist NECK: supple, no nuchal rigidity, no adenopathy, non-tender CHEST: well healed midline sternotomy scar. LUNGS: Breath sounds decreased bilaterally, no wheezes rhonchi rales. HEART: no murmurs, S1 normal and S2 normal ABDOMEN: abdomen soft, non-tender, normo-active bowel sounds, no masses, no rebound or guarding. BACK: Back is symmetrical on inspection and there is no deformity, no midline tenderness, no CVA tenderness. SKIN: no rashes and no bruising UPPER EXTREMITIES: upper extremities are grossly normal. LOWER EXTREMITIES: No pitting edema. NEURO EXAM: Normal sensorium, cranial nerves II-XII grossly intact, normal speech, no gross weakness of arms, no gross weakness of legs. Medical Decision & Procedures ER Provider Diagnostic Interpretation: Xray results have been interpreted by the radiologist and me. CHEST ONE VIEW PORTABLE CLINICAL HISTORY: chest pain dyspnea COMPARISON STUDY: 07/07/2016 FINDINGS: Mild stable cardiomegaly. Prior median sternotomy. Lungs are clear. Diaphragms are smooth. IMPRESSION: Mild stable cardia megaly. Otherwise negative study Electronically signed by: Armando Huynh M.D. 10/17/2016 4:56 PM Dictated Date/Time: 10/17/2016 4:55 PM Laboratory Results Test 10/17/16 16:20 Immature Granulocyte % (Auto) 0.1 % White Blood Count 7.23 K/uL (4.8-10.8) Red Blood Count 4.73 M/uL (4.7-6.1) Hemoglobin 10.8 g/dL (14.0-18.0) Hematocrit 35.5 % (42-52) Mean Corpuscular Volume 75.1 fL (80-100) Mean Corpuscular Hemoglobin 22.8 pg (25-34) Mean Corpuscular Hemoglobin Concent 30.4 g/dl (32-36) Platelet Count 300 K/uL (130-400) Mean Platelet Volume 10.7 fL (7.4-10.4) Neutrophils (%) (Auto) 67.6 % Lymphocytes (%) (Auto) 23.9 % Monocytes (%) (Auto) 7.2 % Eosinophils (%) (Auto) 1.1 % Basophils (%) (Auto) 0.1 % Neutrophils # (Auto) 4.88 K/uL (1.4-6.5) Lymphocytes # (Auto) 1.73 K/uL (1.2-3.4) Monocytes # (Auto) 0.52 K/uL (0.11-0.59) Eosinophils # (Auto) 0.08 K/uL (0-0.5) Basophils # (Auto) 0.01 K/uL (0-0.2) Immature Granulocyte # (Auto) 0.01 K/uL (0.00-0.02) Prothrombin Time 10.2 SECONDS (9.0-12.0) Prothromb Time International Ratio 1.0 (0.9-1.1) Estimated Average Glucose 220 mg/dl Hemoglobin A1c 9.3 % (4.5-5.6) Total Bilirubin 0.4 mg/dl (0.2-1) Aspartate Amino Transf (AST/SGOT) 22 U/L (15-37) Alanine Aminotransferase (ALT/SGPT) 30 U/L (12-78) Alkaline Phosphatase 78 U/L (45-117) Total Protein 7.6 gm/dl (6.4-8.2) Albumin 4.1 gm/dl (3.4-5.0) Globulin 3.5 gm/dl (2.5-4.0) Albumin/Globulin Ratio 1.2 (0.9-2) Lipase 154 U/L (73-393) Thyroid Stimulating Hormone (TSH) 1.520 uIu/ml (0.300-4.500) Laboratory results per my review. ECG Indication: chest pain Rate (beats per minute): 88 Rhythm: sinus rhythm Findings: no acute ischemic change, left axis deviation, other (normal intervals) ED Course 1612: The patient was evaluated in room A2. A complete history and physical exam was performed. 1736: Upon reevaluation, the patient has no recurrence of symptoms. I discussed the findings and the treatment plan with the patient. He expresses agreement and understanding. He will be evaluated for further management. 1800: I reviewed the patient's case with Dr. Barone, [facility] hospitalist. He will evaluate the patient for further management. Medical Decision Differential diagnosis: Etiologies such as cardiac ischemia, aortic dissection, pulmonary embolism, pneumonia, pneumothorax, musculoskeletal, infections, pericarditis, myocarditis , esophageal rupture, gastrointestinal, as well as others were entertained. Medication Reconciliation: I attest that I have personally reviewed the patient' s current medication list. Pt admitted for continued cardiac evaluation given hx and risk factors. No sx while here and VS stable. Pt in NSR, no longer anticoagulated per his report. Recent egd/colo would point away from GI etiology of chest pain, no evidence of pulmonary pathology on cxr, doubt PE. Doubt dissection. Concerning for possible evolving angina. Pt and family aware of all results and agreeable with plan. Anemia stable per prior records and pt report. Consults Time Called: 1745 Consulting Physician: Dr. Barone [facility] hospitalist Returned Call: 1800 I reviewed the patient's case with him. He will evaluate the patient for further management. Impression Primary Impression: Epigastric pain Additional Impressions: Nausea Angina pectoris Scribe Attestation The scribe's documentation has been prepared under my direction and personally reviewed by me in its entirety. I confirm that the note above accurately reflects all work, treatment, procedures, and medical decision making performed by me. Departure Information Dispostion Being Evaluated By Hospitalist Referrals Fawn Park D.O. (PCP) Patient Instructions My [facility] Problem Qualifiers
[2016-10-17] MEDS ORDERED: GLUCOSE 40% GEL 15 GM TUBE PO PRN (18:30)
[2016-10-17] MEDS ORDERED: ALUMINUM/MAGNESIUM/SIMETH (MAALOX MAX) 30 ML UDC PO PRN (18:30)
[2016-10-17] MEDS ORDERED: ACETAMINOPHEN 325 MG TAB PO PRN (18:30)
[2016-10-17] MEDS ORDERED: MAGNESIUM HYDROXIDE SUSP 30 ML UDC PO PRN (18:30)
[2016-10-17] MEDS ORDERED: GLUCOSE 10 TABS/TUBE PO PRN (18:30)
[2016-10-17] MEDS ORDERED: ONDANSETRON INJ 2 MG/ML 2 ML VIAL IV PRN (18:30)
[2016-10-17] MEDS ORDERED: POLYETHYLENE (MIRALAX) 17 GM PACK PO PRN (18:30)
[2016-10-17] MEDS ORDERED: GLUCAGON FOR INJ 1 MG VIAL SQ PRN (18:30)
[2016-10-17] MEDS ORDERED: NITROGLYCERIN 0.4 MG SL PER TAB CHARGE SL PRN (18:30)
[2016-10-17] MEDS ORDERED: DEXTROSE 50% 50 ML SYR IV PRN (18:30)
--- NOTE | 2016-10-17 18:55 | History and Physical ---
History & Physical Date & Time of Service: Oct 17, 2016 at 18:39 Chief Complaint: Indigestion,Lf Elbow Pain,Nausea,Sweating Primary Care Physician: Fawn Park D.O. History of Present Illness Source: patient, family, clinic records, hospital records This is a 55 year old obese male with a PMH of CAD s/p CABG x4, uncontrolled DM2 , HLD, obstructive sleep apnea, hx. of atrial fibrillation/flutter presents with epigastric pain, L elbow pain, jaw pain, throat swelling, nausea, and diaphoresis. 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 He noted some epigastric pain that he thought was reflux. His symptoms worsened, he became diaphoretic and then developed some left elbow pain - he stated that he thought this related to a work injury; but then he developed L hand numbness/tingling. Was recently diagnosed with MISTY, but has not received his CPAP yet. Was also recently taken off of Coumadin (4-5 weeks prior to arrival) for a hx. of atrial flutter. Currently, he feels slightly nauseous, but symptoms have improved; he is resting comfortably. Past Medical/Surgical History Medical Problems: (1) Allergic reaction Status: Resolved (2) Anxiety Status: Chronic (3) Anxiety Status: Chronic (4) Coronary artery disease Status: Chronic (5) DENTAL SURGERY Status: Resolved (6) Depression Status: Chronic (7) Diabetes Status: Chronic (8) Heart disease Status: Chronic (9) Hyperthyroidism Status: Chronic (10) THYROID CA ABLATION Status: Resolved (11) TOOTH ROOT REMOVAL Status: Resolved (12) Wide-complex tachycardia Status: Resolved Surgical Problems: (1) History of kidney surgery Status: Resolved (2) S/P CABG x 4 Status: Resolved Family History Diabetes mellitus Heart disease Social History Smoking Status: Former Smoker Drug Use: marijuana, other Marital Status: single Housing status: lives with family Occupational Status: unemployed Multi-Drug Resistant Organisms History of MDRO: Yes Type of MDRO: MRSA Allergies Coded Allergies: Penicillins (Verified Allergy, Intermediate, RASH, 10/17/16) Clarithromycin (Unverified Allergy, Mild, ALLERGY, 10/17/16) Erythromycin (Unverified Allergy, Mild, ALLERGY, 10/17/16) Iodinated Diagnostic Agents (Verified Allergy, Unknown, HIVES, 10/17/16) Home Medications Scheduled Aspirin (Aspirin Ec), 81 MG PO QAM Atorvastatin (Lipitor), 80 MG PO QAM Glipizide (Glucotrol), 5 MG PO DAILY Levothyroxine Sodium (Levothyroxine Sodium), 100 MCG PO DAILY Metformin Hcl (Glucophage), 1,000 MG PO BID Metoprolol Tartrate (Lopressor) (Lopressor), 25 MG PO BID Omeprazole (Prilosec), 20 MG PO DAILY Review of Systems Constitutional: + sweats, No fever, No chills, No weakness Respiratory: + dyspnea on exertion (intermittent), No cough, No sputum, No wheezing, No shortness of breath, No dyspnea at rest, No hemoptysis Cardiovascular: + chest pain (epigastric/chest pain), No orthopnea, No PND, No edema, No claudication, No palpitations Abdomen: + nausea, No pain, No vomiting, No diarrhea, No constipation, No GI bleeding Musculoskeletal: + joint pain (L elbow), No muscle pain, No swelling, No calf pain Genitourinary - Male: No hematuria, No dysuria, No urinary frequency, No urinary urgency Neurologic: + weakness, + vertigo, + balance problems Psychiatric: No depression symptoms Endocrine: No fatigue Hematologic / Lymphatic: No abnormal bleeding/bruising Integumentary: No rash Allergic / Immunologic: No environmental allergies, No seasonal allergies Physical Exam Vital Signs Date Time Temp Pulse Resp B/P (MAP) Pulse Ox O2 Delivery O2 Flow Rate FiO2 10/17/16 17:37 78 20 147/83 97 Room Air 10/17/16 16:25 86 10/17/16 16:25 98 Room Air 10/17/16 16:23 97 Room Air 10/17/16 15:58 37.1 88 18 53/90 97 Room Air General Appearance: no apparent distress, + obese Head: normocephalic, atraumatic Eyes: normal inspection ENT: hearing grossly normal Respiratory/Chest: chest non-tender, lungs clear, normal breath sounds, no respiratory distress, no accessory muscle use Cardiovascular: regular rate, rhythm, no edema, no gallop, no JVD, no murmur, normal peripheral pulses Abdomen/GI: normal bowel sounds, non tender, soft Extremities/Musculoskelatal: normal inspection, no calf tenderness, normal capillary refill, no pedal edema, normal range of motion Neurologic/Psych: no motor/sensory deficits, alert, normal mood/affect Skin: normal color Lymphatic: no adenopathy Diagnostics Laboratory Results Results Past 24 Hours Test 10/17/16 16:20 Range/Units White Blood Count 7.23 4.8-10.8 K/uL Red Blood Count 4.73 4.7-6.1 M/uL Hemoglobin 10.8 14.0-18.0 g/dL Hematocrit 35.5 42-52 % Mean Corpuscular Volume 75.1 80-100 fL Mean Corpuscular Hemoglobin 22.8 25-34 pg Mean Corpuscular Hemoglobin Concent 30.4 32-36 g/dl Platelet Count 300 130-400 K/uL Mean Platelet Volume 10.7 7.4-10.4 fL Neutrophils (%) (Auto) 67.6 % Lymphocytes (%) (Auto) 23.9 % Monocytes (%) (Auto) 7.2 % Eosinophils (%) (Auto) 1.1 % Basophils (%) (Auto) 0.1 % Neutrophils # (Auto) 4.88 1.4-6.5 K/uL Lymphocytes # (Auto) 1.73 1.2-3.4 K/uL Monocytes # (Auto) 0.52 0.11-0.59 K/uL Eosinophils # (Auto) 0.08 0-0.5 K/uL Basophils # (Auto) 0.01 0-0.2 K/uL RDW Standard Deviation 49.9 36.4-46.3 fL RDW Coefficient of Variation 18.2 11.5-14.5 % Immature Granulocyte % (Auto) 0.1 % Immature Granulocyte # (Auto) 0.01 0.00-0.02 K/uL Prothrombin Time 10.2 9.0-12.0 SECONDS Prothromb Time International Ratio 1.0 0.9-1.1 Sodium Level 136 136-145 mmol/L Potassium Level 4.5 3.5-5.1 mmol/L Chloride Level 101 98-107 mmol/L Carbon Dioxide Level 27 21-32 mmol/L Anion Gap 8.0 3-11 mmol/L Blood Urea Nitrogen 14 7-18 mg/dl Creatinine 1.30 0.60-1.40 mg/dl Est Creatinine Clear Calc Drug Dose 76.3 ml/min Estimated GFR () 70.7 Estimated GFR (Non- 61.0 BUN/Creatinine Ratio 10.4 10-20 Random Glucose 260 70-99 mg/dl Calcium Level 8.9 8.5-10.1 mg/dl Total Bilirubin 0.4 0.2-1 mg/dl Aspartate Amino Transf (AST/SGOT) 22 15-37 U/L Alanine Aminotransferase (ALT/SGPT) 30 12-78 U/L Alkaline Phosphatase 78 45-117 U/L Troponin I < 0.015 0-0.045 ng/ml Total Protein 7.6 6.4-8.2 gm/dl Albumin 4.1 3.4-5.0 gm/dl Globulin 3.5 2.5-4.0 gm/dl Albumin/Globulin Ratio 1.2 0.9-2 Lipase 154 73-393 U/L Thyroid Stimulating Hormone (TSH) 1.520 0.300-4.500 uIu/ml Diagnostic Radiology CHEST ONE VIEW PORTABLE CLINICAL HISTORY: chest pain dyspnea COMPARISON STUDY: 07/07/2016 FINDINGS: Mild stable cardiomegaly. Prior median sternotomy. Lungs are clear. Diaphragms are smooth. IMPRESSION: Mild stable cardia megaly. Otherwise negative study EKG Normal sinus rhythm Left axis deviation Abnormal ECG When compared with ECG of 07-JUL-2016 19:15, No significant change was found Impression Assessment and Plan This is a 55 year old obese male with a PMH of CAD s/p CABG x4, uncontrolled DM2 , HLD, obstructive sleep apnea, hx. of atrial fibrillation/flutter presents with epigastric pain, L elbow pain, jaw pain, throat swelling, nausea, and diaphoresis. Chest Pain r/o ACS in the setting of CAD s/p CABG x4 in 2013 recent echo done in August 2016, shows RV overload, otherwise, no valvular issues, normal LVEF initial cardiac enzyme negative EKG with no ST-T wave changes currently resting comfortably plan is to observe overnight in tele trend cardiac enzymes recent echo, so will not repeat at this time repeat EKG in AM continue aspirin, statin, b-maddie cardiology consultation for possible stress test DM2 uncontrolled, last Ha1c ~ 8.9% recheck Ha1c hold oral agents start insulin sliding scale HLD continue 80mg Lipitor check fasting lipid panel in AM MISTY recently diagnosed MISTY has not had CPAP at home yet; to be delivered on October 18 Hx. of Atrial Fibrillation recently had Holter monitoring as outpatient about 4-5 weeks ago, Coumadin was discontinued DVT ppx Lovenox FULL CODE VTE Prophylaxis VTE Risk Assessment Done? Y/N: Yes Risk Level: Moderate
[2016-10-17] MEDS ORDERED: IV FLUIDS COMPLETED PRN (20:00)
[2016-10-17 20:02] VITALS: BP 143/79; PULSE 75; TEMP 36.6; O2SAT 97; BMI 36.6
[2016-10-17] MEDS: INSULIN ASPART 100 UNITS/ML 3 ML PEN SC SCH (20:54)
[2016-10-17] MEDS: SODIUM CHLORIDE 0.9% 1000ML 1,000 ML IV SCH (20:55)
[2016-10-17] MEDS ORDERED: ENOXAPARIN 40 MG/0.4 ML SYR SC SCH (21:00)
[2016-10-17 22:34] VITALS: PULSE 83; O2SAT 99
[2016-10-17 23:04] VITALS: BP 122/73; PULSE 75; TEMP 36.6; O2SAT 97
[2016-10-17] MEDS: METOPROLOL TARTRATE 25 MG TAB PO SCH (23:24)
[2016-10-17 23:35] VITALS: PULSE 78; O2SAT 98
[2016-10-18] VITALS (8 sets, daily range): BP systolic 111–145; BP diastolic 72–93; PULSE 69–91; TEMP 36.4–36.9; O2SAT 93–98; Ht 172.7 cm; Wt 105.5 kg
[2016-10-18 01:12] LABS: CKMB/CK RATIO 1.5 (0-3.0)
[2016-10-18] MEDS ORDERED: LEVOTHYROXINE 100 MCG TAB PO SCH (06:00)
[2016-10-18] MEDS: INSULIN ASPART 100 UNITS/ML 3 ML PEN SC SCH ×2 (07:00→11:00)
[2016-10-18 07:25] LABS: ESTIMATED AVERAGE GLUCOSE 220 mg/dl; HA1C FLAG Normal (Normal)
[2016-10-18 08:40] LABS: HEMATOCRIT 33.9 % (42-52); MEAN CELL VOLUME 75.3 fL (80-100); MEAN CORPUSCULAR HEMOGLOBIN 22.9 pg (25-34); MEAN CORPUSCULAR HGB CONC 30.4 g/dl (32-36); MEAN PLATELET VOLUME 9.7 fL (7.4-10.4); PLATELET COUNT 270 K/uL (130-400)
[2016-10-18] MEDS: SODIUM CHLORIDE 0.9% 1000ML 1,000 ML IV SCH (08:44)
[2016-10-18 08:58] LABS: BUN/CREATININE RATIO 10.7 (10-20); CALCIUM 8.3 mg/dl (8.5-10.1); CREATININE 1.3 mg/dl (0.60-1.40); MAGNESIUM 1.7 mg/dl (1.8-2.4); POTASSIUM 4.1 mmol/L (3.5-5.1)
[2016-10-18] MEDS ORDERED: ATORVASTATIN 40 MG TAB PO SCH (09:00)
[2016-10-18] MEDS ORDERED: ASPIRIN 81 MG ECTAB PO SCH ×2 (09:00)
[2016-10-18] MEDS ORDERED: FERROUS SULFATE 325 MG TAB PO SCH (09:00)
[2016-10-18] MEDS ORDERED: PANTOprazole SOD 40 MG TAB PO SCH ×2 (09:00→21:00)
[2016-10-18 09:01] LABS: CHOLESTEROL/HDL RATIO 5.1
[2016-10-18 09:03] LABS: CKMB/CK RATIO 1.6 (0-3.0)
[2016-10-18] MEDS ORDERED: MAGNESIUM SULFATE 1GM / D5W 1 GM in PREMIXED IN D5W 100 ML IV ONE (11:15)
[2016-10-18] MEDS: METOPROLOL TARTRATE 25 MG TAB PO SCH (13:48)
[2016-10-18] MEDS ORDERED: LISINOPRIL 2.5 MG TAB PO ONE (14:41)
--- NOTE | 2016-10-18 15:52 | Progress Note ---
Progress Note Date of Service Oct 18, 2016. Progress Note Echocardiogram unremarkable ok to d/c to home, my office will call to arrange nuclear stress as outpatient
--- NOTE | 2016-10-18 15:57 | ECHOCARDIOGRAM REPORT ---
*NOTICE TO RECEIVING REPUBLICAN AGENCY This information is strictly Confidential and protected under [place] law. [place] law prohibits you from making any further disclosure of this information unless further disclosure is expressly permitted by the written consent of the person to whom it pertains or is authorized by law. A general authorization for the release of medical or other information is not sufficient for this purpose. Hospital accepts no responsibility if the information is made available to any other person, INCLUDING THE PATIENT. Interpretation Summary * Name: BALBINA REMY Study Date: 10/18/2016 02:43 PM BP: 145/93 mmHg * Patient Location: C.2T\S\S243\S\1 HR: 91 * : 1960 (M/d/yyyy) Gender: Male Height: 68 in * Age: 55 yrs Ethnicity: CA Weight: 232 lb * Ordering Physician: Robel Olmedo * Referring Physician: Self, Referred * Performed By: Marianne Rdz RDCS * * Reason For Study: CHEST PAIN * BSA: 2.2 m2 * -- Conclusions -- * Normal LV chamber size with mild concentric LVH. * Normal LV systolic function, EF 55-60%. Abnormal septal wall motion consistent with post-operative state, otherwise, no segmental left ventricular wall motion abnormalities are noted. * Grade II diastolic dysfunction. * No significant valvular pathology. Procedure Details * A contrast injection of Definity was performed to improve assessment of LV function. * Contrast was injected into an intravenous site in the right arm. * One vial of Definity ultrasound contrast was diluted in normal saline to a total volume of 10 ml. A total of '2' ml of solution was administered during imaging. * Lot # [id number] of Definity utilized for procedure. * Expiration date 1 NOV 09. * The attending nurse who injected the contrast agent was IRIS MARTIN RN. Left Ventricle * The left ventricle is normal in size. * There is mild concentric left ventricular hypertrophy. * Ejection Fraction = 55-60%. * Left ventricular systolic function is normal. * No segmental left ventricular wall motion abnormalities are noted. * The left ventricular wall motion is normal. Right Ventricle * The right ventricular cavity size is normal (basal dimension <4.2 cm in right ventricular apical 4-chamber view). * The right ventricular systolic function is normal as assessed by tricuspid annular plane systolic excursion (TAPSE) (normal >1.5 cm). Atria * The left atrial size is normal. * Right atrial size is normal. * No ASD detected; PFO is not assessed. Mitral Valve * The mitral valve is normal in structure and function. Tricuspid Valve * The tricuspid valve is normal in structure and function. Aortic Valve * The aortic valve is not well visualized. * No hemodynamically significant valvular aortic stenosis. * There is no significant aortic regurgitation. Pulmonic Valve * The pulmonary valve is not well seen, but the Doppler examination is normal without significant regurgitation or stenosis. Great Vessels * The aortic root is normal size. Pericardium/Pleural * There is no pericardial effusion. Left Ventricular Diastolic Function * Diastolic dysfunction, Grade II (pseudonormalization pattern). MMode 2D Measurements and Calculations IVSd 1.4 cm IVSs 2.0 cm LVIDd 4.2 cm LVIDs 2.9 cm LVPWd 1.3 cm LVPWs 1.6 cm IVS/LVPW 1.0 FS 30.2 % EDV(Teich) 76.4 ml ESV(Teich) 32.2 ml EF(Teich) 57.9 % EDV(cubed) 71.5 ml ESV(cubed) 24.3 ml EF(cubed) 66.0 % % IVS thick 41.9 % % LVPW thick 16.8 % LV mass(C)d 211.1 grams LV mass(C)dI 97.0 grams/m\S\2 LV mass(C)s 201.0 grams LV mass(C)sI 92.3 grams/m\S\2 SV(Teich) 44.3 ml SI(Teich) 20.3 ml/m\S\2 SV(cubed) 47.2 ml SI(cubed) 21.7 ml/m\S\2 Ao root diam 3.4 cm Ao root area 9.0 cm\S\2 LA dimension 3.4 cm LA/Ao 1.0 LVAd ap4 33.5 cm\S\2 LVLd ap4 8.3 cm EDV(MOD-sp4) 110.3 ml EDV(sp4-el) 115.4 ml LVAs ap4 21.7 cm\S\2 LVLs ap4 7.3 cm ESV(MOD-sp4) 53.6 ml ESV(sp4-el) 54.7 ml EF(MOD-sp4) 51.4 % EF(sp4-el) 52.6 % LVAd ap2 33.0 cm\S\2 LVLd ap2 8.2 cm EDV(MOD-sp2) 109.1 ml EDV(sp2-el) 112.2 ml LVAs ap2 20.6 cm\S\2 LVLs ap2 7.3 cm ESV(MOD-sp2) 48.2 ml ESV(sp2-el) 49.7 ml EF(MOD-sp2) 55.8 % EF(sp2-el) 55.7 % LVLd %diff -0.34 % EDV(MOD-bp) 111.7 ml LVLs %diff -0.95 % ESV(MOD-bp) 50.7 ml EF(MOD-bp) 54.6 % SV(MOD-sp4) 56.7 ml SI(MOD-sp4) 26.1 ml/m\S\2 SV(MOD-sp2) 60.9 ml SI(MOD-sp2) 28.0 ml/m\S\2 SV(MOD-bp) 61.0 ml SI(MOD-bp) 28.0 ml/m\S\2 SV(sp4-el) 60.7 ml SI(sp4-el) 27.9 ml/m\S\2 SV(sp2-el) 62.5 ml SI(sp2-el) 28.7 ml/m\S\2 Doppler Measurements and Calculations MV E max jorge 92.3 cm/sec MV A max jorge 76.0 cm/sec MV E/A 1.2 MV dec time 0.18 sec Ao V2 max 138.5 cm/sec Ao max PG 7.7 mmHg Ao max PG (full) 4.2 mmHg LV V1 max PG 3.4 mmHg LV V1 max 92.8 cm/sec
--- NOTE | 2016-10-18 16:31 | CARDIOLOGY CONSULTATION ---
DATE OF CONSULTATION: 10/18/2016 CONSULTATION REQUESTED BY: Dr. Barone. REASON FOR CONSULTATION: Indigestion and elbow pain. HISTORY OF PRESENT ILLNESS: Mr. Calderon is a very pleasant 55-year-old gentleman who normally follows with myself as an outpatient for his history of coronary artery disease. He presented to [facility] on 10/17/2016 with a complaint of epigastric discomfort. The patient states he was at work when he suddenly developed some epigastric discomfort that was associated with belching and left elbow pain. The patient states he took Pepto-Bismol x2 which would transiently have his symptoms resolve. He then tried to eat something and again that transiently improved his symptoms for several minutes; however, they came back. At that point, the patient started becoming anxious, concerned he was having another cardiac event. He became sweaty and came into the Emergency Department. In the Emergency Department, his discomfort was completely resolved with eating. He has had none further. He does not believe he has changed his diet much recently, but he does admit that he has a horrible diet and he has gained a significant amount of weight in the last year, since getting out of [facility]. Otherwise, he has been compliant with all of his medications and I actually saw the patient as an outpatient on the of this month when he was without complaint. PAST SURGICAL HISTORY: 1. Coronary artery bypass grafting surgery x4 with a ALVAREZ to the LAD, vein graft to the ramus, vein graft to the OM and vein graft to the posterior descending. 2. Tooth extraction. 3. Kidney surgery as a child. 4. Upper endoscopy. 5. Colonoscopy. MEDICAL ILLNESSES: 1. Coronary artery disease, status post CABG with severe underlying [place] vessel disease. 2. Obesity. 3. History of atrial flutter in the setting of Celexa overdose. 4. Diabetes. 5. Anxiety. 6. Toxic goiter. FAMILY HISTORY: Noncontributory. SOCIAL HISTORY: The patient has a remote tobacco use history, quit in 1990. Denies alcohol or recreational drug use. He is not . 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 REVIEW OF SYSTEMS: As per HPI, all other systems reviewed and negative at this time. ALLERGIES: 1. CLARITHROMYCIN. 2. ERYTHROMYCIN. 3. CONTRAST DYE. 4. PENICILLIN. MEDICATIONS AN OUTPATIENT: 1. Aspirin 81 mg daily. 2. Metoprolol 25 mg b.i.d. 3. Atorvastatin 80 mg daily. 4. Metformin b.i.d. 5. Omeprazole 20 mg daily. 6. Glipizide daily. PHYSICAL EXAMINATION: VITAL SIGNS: Temperature 36.5, pulse 91, respiratory rate 12, blood pressure 145/93. GENERAL: Awake, alert, oriented x3 in no acute distress. HEENT: Normocephalic, atraumatic. Pupils equal, round, and reactive to light and accommodation. Extraocular muscles intact. Anicteric sclerae. Moist mucous membranes. NECK: No JVD, no bruit. CARDIOVASCULAR: Regular. Positive S4. Normal S1 and S2. No S3. No murmurs or rubs. PULMONARY: Clear to auscultation bilaterally. No rales, rhonchi, or wheezing. ABDOMEN: Bowel sounds x4, soft. No rebound, guarding, tenderness. No organomegaly. EXTREMITIES: No clubbing, cyanosis or edema. +2 pedal pulses bilaterally. SKIN: Warm and dry. TEST RESULTS: Troponin negative x3. CPK of 176. A 12-lead EKG performed in the Emergency Department independently reviewed at this time shows normal sinus rhythm, left axis deviation, poor R-wave progression across the precordium, no signs of active ischemia, no significant change compared to previous studies. A 2-D echocardiogram is pending at this time. IMPRESSION: 1. Indigestion likely secondary to gastroesophageal reflux disease. 2. History of coronary artery disease, status post coronary artery bypass graft x4 with severe underlying [place] vessel disease. 3. Diabetes. 4. Hypertension. RECOMMENDATIONS: It was my pleasure to see Mr. Calderon in consultation today. Given the constellation of his symptoms along with his history of underlying gastroesophageal reflux disease and the fact that he has been on the same dose of omeprazole for over 3 years now, also including the fact that his discomfort was relieved with Pepto-Bismol and eating, I believe it is most likely acid reflux. For completeness sake though, a 2-D echocardiogram will be performed at this time to evaluate for any wall motion abnormalities and should that be unremarkable, then the patient could be discharged to home from a cardiac standpoint and will complete a nuclear stress test as an outpatient. Otherwise, he will start on Protonix on admission and I have increased this to b.i.d. and I have recommended he follow up with his family physician for further treatment of GERD as an outpatient. Otherwise, he does have a history of diabetes and AMARJIT inhibitor has not been started in the past due to his relative hypotension, but I will start him on very low dose lisinopril 2.5 mg daily at this time mainly for the nephroprotective effects.
--- NOTE | 2016-10-18 16:32 | Progress Note ---
Subjective Date of Service: Oct 18, 2016. Subjective Pt evaluation today including: conversation w/ patient, physical exam, lab review, review of studies, review of inpatient medication list Saw/examined the patient in room 243 Doing fine, no issues to note Denies chest pain/shortness of breath Problem List Medical Problems: (1) Acute bronchitis Status: Acute (2) Angina pectoris Status: Acute (3) Cough Status: Acute (4) Epigastric pain Status: Acute (5) Hypomagnesemia Status: Acute (6) LFT elevation Status: Acute (7) Lightheadedness Status: Acute (8) Nausea Status: Acute Review of Systems Constitutional: No fever, No chills Respiratory: No shortness of breath Cardiac: No chest pain, No edema, No palpitations Abdomen: No pain, No nausea, No vomiting, No diarrhea Musculoskeletal: No joint pain Male : No dysuria, No urinary frequency Heme: No abnormal bleeding/bruising Medications Current Inpatient Medications Medications (Trade) Dose Ordered Sig/Shari Route Start Time Stop Time Status Last Admin Dose Admin Enoxaparin Sodium (Lovenox Inj) 40 mg HS SC 10/17/16 21:00 11/16/16 20:59 Sodium Chloride 1,000 ml @ 80 mls/hr [id number] IV 10/17/16 20:30 11/16/16 20:29 10/18/16 08:44 80 MLS/HR Acetaminophen (Tylenol Tab) 650 mg Q4H PRN PO 10/17/16 18:30 11/16/16 18:29 Al Hydrox/Mg Hydrox/Simethicone (Maalox Max Susp) 15 ml Q4H PRN PO 10/17/16 18:30 11/16/16 18:29 Magnesium Hydroxide (Milk Of Magnesia Susp) 30 ml Q12H PRN PO 10/17/16 18:30 11/16/16 18:29 Ondansetron HCl (Zofran Inj) 4 mg Q6H PRN IV 10/17/16 18:30 11/16/16 18:29 Nitroglycerin (Nitrostat Tab) 0.4 mg UD PRN SL 10/17/16 18:30 11/16/16 18:29 Polyethylene (Miralax Powder Packet) 17 gm DAILY PRN PO 10/17/16 18:30 11/16/16 18:29 Glucose (Glucose 40% Gel) 15-30 GRAMS 15 GRAMS... UD PRN PO 10/17/16 18:30 11/16/16 18:29 Glucose (Glucose Chew Tab) 4-8 Tablets 4 Tabl... UD PRN PO 10/17/16 18:30 11/16/16 18:29 Dextrose (Dextrose 50% 50ML Syringe) 25-50ML OF 50% DW IV FOR... UD PRN IV 10/17/16 18:30 11/16/16 18:29 Glucagon (Glucagon Inj) 1 mg UD PRN SQ 10/17/16 18:30 11/16/16 18:29 Aspirin (Ecotrin Tab) 81 mg QAM PO 10/18/16 09:00 11/17/16 08:59 10/18/16 08:31 81 MG Atorvastatin Calcium (Lipitor Tab) 80 mg QAM PO 10/18/16 09:00 11/17/16 08:59 10/18/16 08:32 80 MG Levothyroxine Sodium (Synthroid Tab) 100 mcg DAILYBB PO 10/18/16 06:00 11/17/16 05:59 10/18/16 05:50 100 MCG Metoprolol Tartrate (Lopressor Tab) 25 mg BID PO 10/17/16 21:00 11/16/16 20:59 10/18/16 13:48 25 MG Ferrous Sulfate (Feosol Tab) 325 mg QAM PO 10/18/16 09:00 11/17/16 08:59 10/18/16 08:31 325 MG Insulin Aspart (novoLOG ASPART) SLIDING SCALE If C... ACHS SC 10/17/16 21:00 11/16/16 20:59 Miscellaneous (Iv Fluids Completed) 1 ea PRN PRN N/A 10/17/16 20:00 10/17/17 19:59 Pantoprazole Sodium (Protonix Tab) 40 mg BID PO 10/18/16 21:00 11/17/16 08:59 Lisinopril (Zestril Tab) 2.5 mg QAM PO 10/19/16 09:00 11/18/16 08:59 Objective Vital Signs Date Time Temp Pulse Resp B/P (MAP) Pulse Ox O2 Delivery O2 Flow Rate FiO2 10/18/16 16:00 96 Room Air 10/18/16 15:31 36.9 69 20 131/84 (100) 96 Room Air 10/18/16 12:00 95 Room Air 10/18/16 11:27 36.5 91 19 145/93 (110) 93 Room Air 10/18/16 09:00 98 Room Air 10/18/16 07:43 36.5 75 19 121/75 (90) 98 Room Air 10/18/16 04:00 Room Air 10/18/16 03:12 36.4 82 18 111/72 (85) 94 Room Air 10/18/16 00:00 Room Air 10/17/16 23:35 78 98 21 10/17/16 23:04 36.6 75 18 122/73 (89) 97 Room Air 10/17/16 22:34 83 99 21 10/17/16 20:14 81 16 144/87 99 10/17/16 20:02 36.6 75 18 143/79 97 Room Air 10/17/16 18:41 82 22 141/85 98 Room Air 10/17/16 17:37 78 20 147/83 97 Room Air Physical Exam General Appearance: no apparent distress, + obese Respiratory/Chest: chest non-tender, lungs clear, normal breath sounds, no respiratory distress, no accessory muscle use Cardiovascular: regular rate, rhythm, no edema, no gallop, no JVD, no murmur Abdomen: normal bowel sounds, non tender, soft Neurologic/Psychiatric: no motor/sensory deficits, alert, normal mood/affect Laboratory Results Last 24 Hours Test 10/17/16 20:25 10/18/16 00:26 10/18/16 07:07 10/18/16 08:26 Bedside Glucose 115 mg/dl 124 mg/dl Total Creatine Kinase 212 U/L 176 U/L Creatine Kinase MB 3.2 ng/ml 2.9 ng/ml Creatine Kinase MB Ratio 1.5 1.6 Troponin I < 0.015 ng/ml < 0.015 ng/ml White Blood Count 7.90 K/uL Red Blood Count 4.50 M/uL Hemoglobin 10.3 g/dL Hematocrit 33.9 % Mean Corpuscular Volume 75.3 fL Mean Corpuscular Hemoglobin 22.9 pg Mean Corpuscular Hemoglobin Concent 30.4 g/dl RDW Standard Deviation 50.3 fL RDW Coefficient of Variation 18.4 % Platelet Count 270 K/uL Mean Platelet Volume 9.7 fL Sodium Level 140 mmol/L Potassium Level 4.1 mmol/L Chloride Level 106 mmol/L Carbon Dioxide Level 27 mmol/L Anion Gap 7.0 mmol/L Blood Urea Nitrogen 14 mg/dl Creatinine 1.30 mg/dl Est Creatinine Clear Calc Drug Dose 75.0 ml/min Estimated GFR () 70.7 Estimated GFR (Non- 61.0 BUN/Creatinine Ratio 10.7 Random Glucose 130 mg/dl Calcium Level 8.3 mg/dl Magnesium Level 1.7 mg/dl Triglycerides Level 170 mg/dl Cholesterol Level 158 mg/dl HDL Cholesterol 31 mg/dl LDL Cholesterol, Calculated 93 mg/dl VLDL Cholesterol, Calculated 34 mg/dl Cholesterol/HDL Ratio 5.1 Test 10/18/16 09:48 10/18/16 11:23 Hepatitis C Antibody Screen NEG Bedside Glucose 138 mg/dl Assessment and Plan This is a 55 year old obese male with a PMH of CAD s/p CABG x4, uncontrolled DM2 , HLD, obstructive sleep apnea, hx. of atrial fibrillation/flutter presents with epigastric pain, L elbow pain, jaw pain, throat swelling, nausea, and diaphoresis. Chest Pain r/o ACS in the setting of CAD 10/18 plan is to d/c home today with aspirin, statin, b-maddie Lisinopril added due to DM2, which I agree with ha1c > 9% - patient insisted he would improve diet and exercise repeat Ha1c as outpatient in 2-3 months and if still > 9%, may need insulin therapy 10/17 s/p CABG x4 in 2013 recent echo done in August 2016, shows RV overload, otherwise, no valvular issues, normal LVEF initial cardiac enzyme negative EKG with no ST-T wave changes currently resting comfortably plan is to observe overnight in tele trend cardiac enzymes recent echo, so will not repeat at this time repeat EKG in AM continue aspirin, statin, b-maddie cardiology consultation for possible stress test DM2 uncontrolled, last Ha1c ~ 8.9% recheck Ha1c hold oral agents start insulin sliding scale HLD continue 80mg Lipitor check fasting lipid panel in AM MISTY recently diagnosed MISTY has not had CPAP at home yet; to be delivered on October 18 Hx. of Atrial Fibrillation recently had Holter monitoring as outpatient about 4-5 weeks ago, Coumadin was discontinued DVT ppx Lovenox FULL CODE Discharge planning: home
[2016-10-18] MEDS ORDERED: FRRS300 PO (16:37)
[2016-10-18] MEDS ORDERED: LSN25 PO (16:37)
[2016-10-18] MEDS ORDERED: PANT1TAB48 PO (16:37)
--- NOTE | 2016-10-18 16:43 | Discharge Instructions ---
Discharge Instructions Date of Service Oct 18, 2016. Admission Reason for Admission: Epigastric Pain, Nausea Discharge Discharge Diagnosis / Problem: Epigastric Pain, Uncontrolled DM2, CAD Discharge Goals Goal(s): Decrease discomfort, Improve function, Diagnostic testing, Therapeutic intervention Activity Recommendations Activity Limitations: resume your previous activity . Instructions / Follow-Up Instructions / Follow-Up Please follow-up with Dr. Huddleston on October 22 at 1:05PM Your Ha1c is > 9% - you will need to get this down through diet and exercise; in 2-3 months, this should be rechecked and if still elevated, you will need to be put on insulin You are started on Lisinopril 2.5mg daily Omeprazole is changed to Pantoprazole 40mg twice daily for reflux You will have an outpatient nuclear stress test Current Hospital Diet Patient's current hospital diet: AHA Diet (Heart Healthy), Diabetes Type 2 Diet Discharge Diet Recommended Diet: AHA Diet (Heart Healthy), Diabetes Type 2 Diet Pending Studies Studies pending at discharge: no Laboratory Results Hemoglobin A1c Test 10/17/16 16:20 Range/Units Estimated Average Glucose 220 mg/dl Hemoglobin A1c 9.3 H 4.5-5.6 % Lipid Panel Test 10/18/16 08:26 Range/Units Triglycerides Level 170 H 0-150 mg/dl Cholesterol Level 158 0-200 mg/dl HDL Cholesterol 31 mg/dl Cholesterol/HDL Ratio 5.1 LDL Cholesterol, Calculated 93 mg/dl Medical Emergencies . Who to Call and When: Medical Emergencies: If at any time you feel your situation is an emergency, please call 911 immediately. . 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 . "Provider Documentation" section prepared by Claudia Barone. . VTE Core Measure Inpt VTE Proph given/why not?: Enoxaparin (Lovenox)SQ
--- NOTE | 2016-10-18 16:45 | Discharge Summary ---
Discharge Summary Date of Service Oct 18, 2016. Discharge Summary Admission Date: Oct 17, 2016 at 18:36 Discharge Date: Oct 18, 2016 Discharge Disposition: Home Principal Diagnosis: Uncontrolled DM2 GERD Atypical Chest Pain Medication Reconciliation New Medications: Ferrous Sulfate (Ferrous Sulfate) 325 Mg Tab 325 MG PO QAM for 30 Days, #30 TAB Lisinopril (Lisinopril) 2.5 Mg Tab 2.5 MG PO QAM for 30 Days, #30 TAB Changed Medications: Pantoprazole (Protonix) 40 Mg Tab 1 TAB PO BID for 30 Days, #60 TAB 3 Refills (Changed from: Omeprazole (Prilosec ) 20 Mg Capcr 20 Mg PO DAILY) Continued Medications: Aspirin (Aspirin Ec) 81 Mg Tab 81 MG PO QAM Atorvastatin (Lipitor) 80 Mg Tab 80 MG PO QAM Glipizide (Glucotrol) 5 Mg Tab 5 MG PO DAILY, TAB Levothyroxine Sodium (Levothyroxine Sodium) 100 Mcg Tab 100 MCG PO DAILY for 90 Days, #90 TAB 3 Refills Metformin Hcl (Glucophage) 1,000 Mg Tab 1000 MG PO BID, TAB Metoprolol Tartrate (Lopressor) (Lopressor) 50 Mg Tab 25 MG PO BID Admission Information HPI (per Admitting provider): This is a 55 year old obese male with a PMH of CAD s/p CABG x4, uncontrolled DM2 , HLD, obstructive sleep apnea, hx. of atrial fibrillation/flutter presents with epigastric pain, L elbow pain, jaw pain, throat swelling, nausea, and diaphoresis. 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 He noted some epigastric pain that he thought was reflux. His symptoms worsened, he became diaphoretic and then developed some left elbow pain - he stated that he thought this related to a work injury; but then he developed L hand numbness/tingling. Was recently diagnosed with MISTY, but has not received his CPAP yet. Was also recently taken off of Coumadin (4-5 weeks prior to arrival) for a hx. of atrial flutter. Currently, he feels slightly nauseous, but symptoms have improved; he is resting comfortably. Physical Exam (per Admitting): General Appearance: no apparent distress, + obese Head: normocephalic, atraumatic Eyes: normal inspection ENT: hearing grossly normal Respiratory/Chest: chest non-tender, lungs clear, normal breath sounds, no respiratory distress, no accessory muscle use Cardiovascular: regular rate, rhythm, no edema, no gallop, no JVD, no murmur , normal peripheral pulses Abdomen/GI: normal bowel sounds, non tender, soft Extremities/Musculoskelatal: normal inspection, no calf tenderness, normal capillary refill, no pedal edema, normal range of motion Neurologic/Psych: no motor/sensory deficits, alert, normal mood/affect Skin: normal color Lymphatic: no adenopathy Hospital Course This is a 55 year old obese male with a PMH of CAD s/p CABG x4, uncontrolled DM2 , HLD, obstructive sleep apnea, hx. of atrial fibrillation/flutter presents with epigastric pain, L elbow pain, jaw pain, throat swelling, nausea, and diaphoresis. Chest Pain r/o ACS in the setting of CAD 10/18 plan is to d/c home today with aspirin, statin, b-maddie Lisinopril added due to DM2, which I agree with ha1c > 9% - patient insisted he would improve diet and exercise repeat Ha1c as outpatient in 2-3 months and if still > 9%, may need insulin therapy 10/17 s/p CABG x4 in 2013 recent echo done in August 2016, shows RV overload, otherwise, no valvular issues, normal LVEF initial cardiac enzyme negative EKG with no ST-T wave changes currently resting comfortably plan is to observe overnight in tele trend cardiac enzymes recent echo, so will not repeat at this time repeat EKG in AM continue aspirin, statin, b-maddie cardiology consultation for possible stress test DM2 uncontrolled, last Ha1c ~ 8.9% recheck Ha1c hold oral agents start insulin sliding scale HLD continue 80mg Lipitor check fasting lipid panel in AM MISTY recently diagnosed MISTY has not had CPAP at home yet; to be delivered on October 18 Hx. of Atrial Fibrillation recently had Holter monitoring as outpatient about 4-5 weeks ago, Coumadin was discontinued DVT ppx Lovenox FULL CODE Discharge planning: home Total time spent on discharge = 25 minutes This includes examination of the patient, discharge planning, medication reconciliation, and communication with other providers. Discharge Instructions Please follow-up with Dr. Huddleston on October 22 at 1:05PM Your Ha1c is > 9% - you will need to get this down through diet and exercise; in 2-3 months, this should be rechecked and if still elevated, you will need to be put on insulin You are started on Lisinopril 2.5mg daily Omeprazole is changed to Pantoprazole 40mg twice daily for reflux You will have an outpatient nuclear stress test
[2016-10-19] MEDS ORDERED: LISINOPRIL 2.5 MG TAB PO SCH (09:00)
== END 2016-10-18 17:51 | disposition home or self-care (01) ==
LOC: C.EDB 15:54 → C.2T 18:36 → ENRESERV 19:00
PROVIDERS: ADMIT Family Medicine; ATTEND Family Medicine
DX: K21.9 Gastro-esophageal reflux disease without esophagitis (principal); R07.89 Other chest pain; I48.91 Unspecified atrial fibrillation; E11.9 Type 2 diabetes mellitus without complications; I10 Essential (primary) hypertension; G47.33 Obstructive sleep apnea (adult) (pediatric); F41.9 Anxiety disorder, unspecified; I25.10 Atherosclerotic heart disease of native coronary artery without angina pectoris; E66.9 Obesity, unspecified; Z83.3 Family history of diabetes mellitus; Z95.1 Presence of aortocoronary bypass graft; Z82.49 Family history of ischemic heart disease and other diseases of the circulatory system; Z87.891 Personal history of nicotine dependence; Z79.01 Long term (current) use of anticoagulants

== ENCOUNTER 2017-05-05 09:09 | Emergency (ER) | payer OTHER ==
[~2017-05-05] VITALS: Ht 172.7 cm; Wt 110.7 kg
[~2017-05-05 09:09] MED LIST changes: +FRRS300 PO; -LIRA18IN SQ; +LSN25 PO; +PANT1TAB3 PO; -PRLSR20 PO; -WARF4TAB8 PO
[2017-05-05 09:14] VITALS: BP 153/86; PULSE 83; TEMP 36.6; O2SAT 96; Ht 172.7 cm; Wt 110.7 kg
--- NOTE | 2017-05-05 09:38 | EMERGENCY ROOM VISIT NOTE ---
History Report prepared by Jorgito: Arden Arthur Under the Supervision of: Dr. Praveen Ariza M.D. First contact with patient: 09:15 Chief Complaint: RASH Stated Complaint: ITCHY RASH History of Present Illness The patient is a 56 year old male who presents to the Emergency Room with complaints of a global rash that the patient first noticed 1 hour ago. The patient denies using any new detergents, soaps, lotions, or travels. He notes that he took Doxycycline two days ago for a cough. He claims that the Doxycycline was prescribed to him a year ago for a cough, and was likely . The patient also applied Icy-Hot, but has used this multiple times in the past. The patient also noted some pain on his right knee and a small infection under his left naris, these complaints have resolved at this time. 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 A total of ten systems were reviewed and were otherwise negative. Past Medical & Surgical Medical Problems: (1) Allergic reaction (2) Anxiety (3) Anxiety (4) Coronary artery disease (5) DENTAL SURGERY (6) Depression (7) Diabetes (8) Heart disease (9) Hyperthyroidism (10) THYROID CA ABLATION (11) TOOTH ROOT REMOVAL (12) Wide-complex tachycardia Surgical Problems: (1) History of kidney surgery (2) S/P CABG x 4 Family History Diabetes mellitus Heart disease Social History Smoking Status: Former Smoker Alcohol Use: occasionally Drug Use: marijuana, other Marital Status: single Occupation Status: unemployed Current/Historical Medications Scheduled Aspirin (Aspirin Ec), 81 MG PO QAM Atorvastatin (Lipitor), 80 MG PO QAM Ferrous Sulfate (Ferrous Sulfate), 325 MG PO QAM Glipizide (Glucotrol), 5 MG PO DAILY Levothyroxine Sodium (Levothyroxine Sodium), 100 MCG PO DAILY Lisinopril (Lisinopril), 2.5 MG PO QAM Metformin Hcl (Glucophage), 1,000 MG PO BID Metoprolol Tartrate (Lopressor) (Lopressor), 25 MG PO BID Pantoprazole (Protonix), 1 TAB PO BID Allergies Coded Allergies: Penicillins (Verified Allergy, Intermediate, RASH, 05/05/17) Clarithromycin (Verified Allergy, Mild, ALLERGY, 05/05/17) Erythromycin (Verified Allergy, Mild, ALLERGY, 05/05/17) Doxycycline (Unverified Allergy, Unknown, rash, 05/05/17) Iodinated Diagnostic Agents (Verified Allergy, Unknown, HIVES, 05/05/17) Physical Exam Vital Signs Date Time Temp Pulse Resp B/P (MAP) Pulse Ox O2 Delivery O2 Flow Rate FiO2 05/05/17 09:14 36.6 83 18 153/86 96 Room Air Physical Exam GENERAL: Awake, alert, well-appearing, in no distress HENT: Normocephalic, atraumatic. Oropharynx unremarkable. EYES: Normal conjunctiva. Sclera non-icteric. NECK: Supple. No nuchal rigidity. FROM. No JVD. RESPIRATORY: Clear to auscultation. CARDIAC: Regular rate, normal rhythm. Extremities warm and well perfused. Equal palpable radial pulses to the bilateral upper extremities. Equal palpable DP pulses to the bilateral lower extremities. ABDOMEN: Soft, non-distended. No tenderness to palpation. No rebound or guarding. No masses. RECTAL: Deferred. MUSCULOSKELETAL: Chest examination reveals no tenderness. The back is symmetrical on inspection without obvious abnormality. There is no CVA tenderness to palpation. No joint edema. LOWER EXTREMITIES: Calves are equal size bilaterally and non-tender. No edema. No discoloration. NEURO: Normal sensorium. No sensory or motor deficits noted. No pronator drift. No facial droop. No dysarthria. SKIN: There is a macular papular rash diffusely across the trunk. Rash present across the abdomen, back, and lower extremities. The rash is non-vessicular, no petechia, no erythema or warmth. There is excoriation present around the rash. Nikolsky sign negative. No fluctuance around any lesions. Medical Decision & Procedures ED Course 0921: The patient was evaluated in room B2. A complete history and physical exam was performed. 0953: I reevaluated the patient. Discussed results and discharge instructions: He verbalized understanding and agreement. The patient is ready for discharge. Medical Decision Vitals sign stable. Rash is consistent with dermatitis. Most likely resulting from taking Doxycycline, other potential causes include Icy-Hot ointment. Patient was advised not to take the Doxycycline or use the ointment. Patient was advised to stop itching the rash, patient agreed and verbalized understanding. The patient's questions were answered. He was offered Benadryl in the department, but noted that he had an important meeting to get to today. He will take Benadryl at home OTC. Impression Primary Impression: Rash and nonspecific skin eruption Scribe Attestation The scribe's documentation has been prepared under my direction and personally reviewed by me in its entirety. I confirm that the note above accurately reflects all work, treatment, procedures, and medical decision making performed by me. The chart was completed utilizing [employer] Speech voice recognition software. Grammatical errors, random word insertions, pronoun errors, and incomplete sentences are an occasional consequence of this system due to software limitations, ambient noise, and hardware issues. Any formal questions or concerns about the content, text, or information contained within the body of this dictation should be directly addressed to the physician for clarification. Departure Information Dispostion Home / Self-Care Referrals [place] D[facility] (PCP) Forms HOME CARE DOCUMENTATION FORM, IMPORTANT VISIT INFORMATION, WORK / SCHOOL INSTRUCTIONS Patient Instructions My [facility] Additional Instructions STOP TAKIKNG THE DOXYCYCLINE YOU HAVE; USE BENADRYL INSTRUCTED FOR RASH AND ITCHING
== END 2017-05-05 09:47 | disposition home or self-care (01) ==
LOC: C.EDB 09:10
DX: R21 Rash and other nonspecific skin eruption (principal); E11.9 Type 2 diabetes mellitus without complications; E05.90 Thyrotoxicosis, unspecified without thyrotoxic crisis or storm; I51.9 Heart disease, unspecified; Z87.891 Personal history of nicotine dependence; Z79.82 Long term (current) use of aspirin; Z79.84 Long term (current) use of oral hypoglycemic drugs; Z83.3 Family history of diabetes mellitus; Z82.49 Family history of ischemic heart disease and other diseases of the circulatory system